=== PATIENT | male | born 1990 | race American Indian/Alaskan Native ===

== ENCOUNTER 2017-05-14 16:40 | Emergency (ER) | payer MEDICAID ==
[~2017-05-14] VITALS: Ht 188320.1 cm; Wt 80.9 kg
[~2017-05-14 16:40] MED LIST: QUET-1 PO; VAL5T PO
[2017-05-14] MEDS ORDERED: quetiapine 100mg tablet PO STA (17:20)
[2017-05-14] MEDS ORDERED: LORazepam 1 MG tablet PO ONE (17:20)
[2017-05-14 17:40] LABS: CLARITY,URINE CLEAR (Clear); COLOR,URINE YELLOW (Yellow); GLUCOSE, URINE NEGATIVE (Neg); KETONES,URINE NEGATIVE (Neg); LEUKOCYTE ESTERASE ,URINE NEGATIVE (Neg); NITRITES, URINE NEGATIVE (Neg); OCCULT BLOOD,URINE NEGATIVE (Neg); PROTEIN,URINE NEGATIVE (Neg); UROBILINOGEN,URINE 0.2 E.U/dL (0.2-1.0)
[2017-05-14 17:47] LABS: URINE AMPHETAMINE SCREEN POSITIVE (Neg); URINE BARBITUATE SCREEN NEGATIVE (Neg); URINE BENZODIAZEPINES SCREEN POSITIVE (Neg); URINE CANNABINOID SCREEN NEGATIVE (Neg); URINE COCAINE SCREEN NEGATIVE (Neg); URINE METHADONE SCREEN NEGATIVE (Neg); URINE OPIATE SCREEN NEGATIVE (Neg); URINE PHENCYCLIDINE SCREEN NEGATIVE (Neg)
[2017-05-14 17:50] LABS: UA COLLECTION TYPE CLN CATCH MIDSTREAM
[2017-05-14 19:38] LABS: BASOPHILS # (AUTO) 0.1 X10'3 (0-0.2); BASOPHILS % (AUTO) 0.7 % (0-1); EOSINOPHILS # (AUTO) 0.2 X10'3 (0-0.9); EOSINOPHILS % (AUTO) 1.8 % (0-6); HEMATOCRIT 44.8 % (42.0-52.0); HEMOGLOBIN 14.8 g/dl (14.0-17.9); LYMPHOCYTES # (AUTO) 2.6 X10'3 (1.1-4.8); LYMPHOCYTES % (AUTO) 21.6 % (21-51); MEAN CORPUSCULAR HEMOGLOBIN 29.1 PG (27.0-31.0); MEAN PLATELET VOLUME 11.3 FL (7.4-10.4); MONOCYTES # (AUTO) 0.7 X10'3 (0-0.9); MONOCYTES % (AUTO) 5.9 % (2-12); NEUTROPHILS # (AUTO) 8.5 X10'3 (1.8-7.7); PLATELET COUNT 203 X10'3 (140-440); WHITE BLOOD COUNT 12.2 X10'3 (4.5-11.0)
[2017-05-14 20:04] LABS: ALANINE AMINOTRANSFERASE 38 U/L (12-78); ALBUMIN 3.7 G/DL (3.4-5.0); ALKALINE PHOSPHATASE 83 IU/L (46-116); ANION GAP 8 (8-16); ASPARTATE AMINO TRANSFERASE 30 U/L (10-37); BILIRUBIN,TOTAL 0.6 MG/DL (0.1-1.0); BLOOD UREA NITROGEN 13 MG/DL (7-18); BUN/CREATININE RATIO 18.1 (5.4-32.0); CALCIUM 9.2 MG/DL (8.5-10.1); CHLORIDE 103 MMOL/L (99-107); CREATININE 0.72 MG/DL (0.60-1.10); GLUCOSE 100 MG/DL (70-104); POTASSIUM 4.2 MMOL/L (3.5-5.1); SODIUM 141 MMOL/L (135-145); TOTAL PROTEIN 7.5 G/DL (6.4-8.2); eGFR > 90 ML/MIN
[2017-05-14 20:05] LABS: ETHANOL < 0.010 GM/DL (0.0-0.010)
[2017-05-14] MEDS ORDERED: DIAZ5TAB4 PO (22:09)
[2017-05-14] MEDS ORDERED: QUET200T PO (22:09)
[2017-05-15] MEDS ORDERED: LORazepam 1 MG tablet PO ONE (07:05)
[2017-05-15] MEDS ORDERED: acetaminophen 325mg tablet PO PRN (07:15)
[2017-05-15] MEDS ORDERED: quetiapine 100mg tablet PO SCH (08:00)
[2017-05-15 11:23] VITALS: BP 114/63
== END 2017-05-15 11:25 | disposition home or self-care (01) ==
LOC: ER 16:41
DX: F20.9 Schizophrenia, unspecified (principal); F31.9 Bipolar disorder, unspecified; R45.851 Suicidal ideations; Z59.0 Homelessness; F41.9 Anxiety disorder, unspecified; F15.10 Other stimulant abuse, uncomplicated; Z88.5 Allergy status to narcotic agent
CPT/HCPCS: 36415; 80053; 80305; 80320; 81003; 84443; 85025; 99284

== ENCOUNTER 2017-05-17 06:28 | Emergency (ER) | payer MEDICAID ==
[~2017-05-17] VITALS: Ht 5535.5 cm; Wt 81.1 kg
[~2017-05-17 06:28] MED LIST changes: +DIAZ5TAB4 PO; +QUET200T PO
[2017-05-17] MEDS ORDERED: PENI500T2 PO (06:43)
[2017-05-17 07:18] VITALS: BP 137/66
== END 2017-05-17 07:20 | disposition home or self-care (01) ==
LOC: ER 06:28
DX: S09.90XA Unspecified injury of head, initial encounter (principal); F15.10 Other stimulant abuse, uncomplicated; K02.9 Dental caries, unspecified; F20.9 Schizophrenia, unspecified; Z59.0 Homelessness; F41.9 Anxiety disorder, unspecified; F32.9 Major depressive disorder, single episode, unspecified; Z88.5 Allergy status to narcotic agent; W01.0XXA Fall on same level from slipping, tripping and stumbling without subsequent striking against object, initial encounter; Y93.89 Activity, other specified; Y92.89 Other specified places as the place of occurrence of the external cause; Y99.8 Other external cause status
CPT/HCPCS: 99284

== ENCOUNTER 2017-05-22 22:40 | Emergency (ER) | payer MEDICAID ==
[~2017-05-22] VITALS: Ht 167.6 cm; Wt 80.9 kg
[~2017-05-22 22:40] MED LIST changes: +PENI500T2 PO; -QUET-1 PO; -VAL5T PO
[2017-05-22 23:14] LABS: BASOPHILS # (AUTO) 0.1 X10'3 (0-0.2); BASOPHILS % (AUTO) 0.3 % (0-1); EOSINOPHILS # (AUTO) 0.2 X10'3 (0-0.9); EOSINOPHILS % (AUTO) 0.9 % (0-6); HEMATOCRIT 47.2 % (42.0-52.0); HEMOGLOBIN 15.5 g/dl (14.0-17.9); LYMPHOCYTES # (AUTO) 2.6 X10'3 (1.1-4.8); LYMPHOCYTES % (AUTO) 14.7 % (21-51); MEAN CORPUSCULAR HEMOGLOBIN 29.1 PG (27.0-31.0); MEAN CORPUSCULAR HGB CONC 32.9 % (33.0-36.5); MEAN CORPUSCULAR VOLUME 88.3 FL (78-98); MEAN PLATELET VOLUME 10.1 FL (7.4-10.4); MONOCYTES # (AUTO) 1.1 X10'3 (0-0.9); MONOCYTES % (AUTO) 6.2 % (2-12); NEUTROPHILS % (AUTO) 77.9 % (42-75); PLATELET COUNT 209 X10'3 (140-440); RED BLOOD COUNT 5.34 X10'6 (4.70-6.10); WHITE BLOOD COUNT 17.9 X10'3 (4.5-11.0)
[2017-05-22 23:24] LABS: URINE AMPHETAMINE SCREEN POSITIVE (Neg); URINE BARBITUATE SCREEN NEGATIVE (Neg); URINE BENZODIAZEPINES SCREEN NEGATIVE (Neg); URINE CANNABINOID SCREEN POSITIVE (Neg); URINE COCAINE SCREEN NEGATIVE (Neg); URINE METHADONE SCREEN NEGATIVE (Neg); URINE OPIATE SCREEN NEGATIVE (Neg); URINE PHENCYCLIDINE SCREEN NEGATIVE (Neg)
[2017-05-22 23:31] LABS: ALANINE AMINOTRANSFERASE 55 U/L (12-78); ALBUMIN 4.3 G/DL (3.4-5.0); ALBUMIN/GLOBULIN RATIO 1.1 (1.1-1.5); ALKALINE PHOSPHATASE 79 IU/L (46-116); ANION GAP 4 (8-16); ASPARTATE AMINO TRANSFERASE 103 U/L (10-37); BILIRUBIN,TOTAL 1.1 MG/DL (0.1-1.0); BLOOD UREA NITROGEN 15 MG/DL (7-18); BUN/CREATININE RATIO 17.6 (5.4-32.0); CALCIUM 9.1 MG/DL (8.5-10.1); CHLORIDE 101 MMOL/L (99-107); CREATININE 0.85 MG/DL (0.60-1.10); GLUCOSE 101 MG/DL (70-104); POTASSIUM 4.2 MMOL/L (3.5-5.1); SODIUM 140 MMOL/L (135-145); TOTAL PROTEIN 8.3 G/DL (6.4-8.2); eGFR > 90 ML/MIN
[2017-05-22 23:40] LABS: ETHANOL < 0.010 GM/DL (0.0-0.010)
[2017-05-23] MEDS ORDERED: LORazepam 1 MG tablet PO ONE (01:00)
[2017-05-23 08:10] VITALS: BP 112/66
== END 2017-05-23 08:12 | disposition home or self-care (01) ==
LOC: ER 22:41
DX: R45.851 Suicidal ideations (principal); F20.9 Schizophrenia, unspecified; F41.9 Anxiety disorder, unspecified; F32.9 Major depressive disorder, single episode, unspecified; F15.10 Other stimulant abuse, uncomplicated; Z59.0 Homelessness; Z88.5 Allergy status to narcotic agent
CPT/HCPCS: 36415; 80053; 80305; 80320; 84443; 85025; 99284

== ENCOUNTER 2017-05-23 16:00 | Emergency (ER) | payer MEDICAID ==
[~2017-05-23] VITALS: Ht 5451.6 cm; Wt 150.0 kg
[2017-05-23 16:46] LABS: BASOPHILS # (AUTO) 0.1 X10'3 (0-0.2); BASOPHILS % (AUTO) 0.8 % (0-1); EOSINOPHILS # (AUTO) 0.3 X10'3 (0-0.9); EOSINOPHILS % (AUTO) 2.5 % (0-6); HEMATOCRIT 42.5 % (42.0-52.0); LYMPHOCYTES # (AUTO) 2.7 X10'3 (1.1-4.8); LYMPHOCYTES % (AUTO) 22.8 % (21-51); MEAN CORPUSCULAR HEMOGLOBIN 29.1 PG (27.0-31.0); MEAN CORPUSCULAR HGB CONC 32.9 % (33.0-36.5); MEAN CORPUSCULAR VOLUME 88.3 FL (78-98); MEAN PLATELET VOLUME 11.2 FL (7.4-10.4); MONOCYTES # (AUTO) 0.7 X10'3 (0-0.9); MONOCYTES % (AUTO) 6.3 % (2-12); NEUTROPHILS # (AUTO) 8.1 X10'3 (1.8-7.7); NEUTROPHILS % (AUTO) 67.6 % (42-75); PLATELET COUNT 194 X10'3 (140-440); RED BLOOD COUNT 4.82 X10'6 (4.70-6.10); RED CELL DISTRIBUTION WIDTH 13.8 % (11.5-14.5); WHITE BLOOD COUNT 11.9 X10'3 (4.5-11.0)
[2017-05-23 17:00] LABS: GIANT PLATELET FEW; LARGE PLATELETS FEW; PLATELET ESTIMATE NORMAL
[2017-05-23 17:06] LABS: ALANINE AMINOTRANSFERASE 50 U/L (12-78); ALBUMIN 3.7 G/DL (3.4-5.0); ALKALINE PHOSPHATASE 81 IU/L (46-116); ANION GAP 8 (8-16); ASPARTATE AMINO TRANSFERASE 68 U/L (10-37); BILIRUBIN,TOTAL 0.5 MG/DL (0.1-1.0); BLOOD UREA NITROGEN 19 MG/DL (7-18); BUN/CREATININE RATIO 23.5 (5.4-32.0); CALCIUM 9.2 MG/DL (8.5-10.1); CHLORIDE 102 MMOL/L (99-107); CREATININE 0.81 MG/DL (0.60-1.10); GLUCOSE 106 MG/DL (70-104); SODIUM 142 MMOL/L (135-145); TOTAL CARBON DIOXIDE 32.1 MMOL/L (24-32); TOTAL PROTEIN 7.5 G/DL (6.4-8.2); eGFR > 90 ML/MIN
[2017-05-23 17:10] LABS: ETHANOL < 0.010 GM/DL (0.0-0.010)
[2017-05-23 17:49] LABS: URINE AMPHETAMINE SCREEN POSITIVE (Neg); URINE BARBITUATE SCREEN NEGATIVE (Neg); URINE BENZODIAZEPINES SCREEN NEGATIVE (Neg); URINE CANNABINOID SCREEN NEGATIVE (Neg); URINE COCAINE SCREEN NEGATIVE (Neg); URINE METHADONE SCREEN NEGATIVE (Neg); URINE OPIATE SCREEN NEGATIVE (Neg); URINE PHENCYCLIDINE SCREEN NEGATIVE (Neg)
[2017-05-23 21:51] VITALS: BP 111/52
== END 2017-05-23 22:00 | disposition home or self-care (01) ==
LOC: ER 16:01
DX: R45.851 Suicidal ideations (principal); F15.10 Other stimulant abuse, uncomplicated; F41.9 Anxiety disorder, unspecified; F32.9 Major depressive disorder, single episode, unspecified; F20.9 Schizophrenia, unspecified; Z87.891 Personal history of nicotine dependence; Z59.0 Homelessness; Z88.5 Allergy status to narcotic agent; Z56.0 Unemployment, unspecified
CPT/HCPCS: 36415; 80053; 80305; 80320; 85025; 99284

== ENCOUNTER 2017-06-04 15:02 | Emergency (ER) | payer MEDICAID ==
[~2017-06-04] VITALS: Ht 170.2 cm; Wt 80.0 kg
[2017-06-04] MEDS ORDERED: ondansetron 4mg rapidly disintigrating tab PO ONE (15:15)
[2017-06-04 15:50] LABS: BASOPHILS # (AUTO) 0.1 X10'3 (0-0.2); BASOPHILS % (AUTO) 0.7 % (0-1); EOSINOPHILS # (AUTO) 0.2 X10'3 (0-0.9); EOSINOPHILS % (AUTO) 1.4 % (0-6); HEMATOCRIT 45.1 % (42.0-52.0); HEMOGLOBIN 14.9 g/dl (14.0-17.9); LYMPHOCYTES # (AUTO) 1.6 X10'3 (1.1-4.8); MEAN CORPUSCULAR HEMOGLOBIN 29.3 PG (27.0-31.0); MEAN CORPUSCULAR HGB CONC 33.1 % (33.0-36.5); MEAN CORPUSCULAR VOLUME 88.6 FL (78-98); MEAN PLATELET VOLUME 11.4 FL (7.4-10.4); MONOCYTES # (AUTO) 0.6 X10'3 (0-0.9); MONOCYTES % (AUTO) 3.8 % (2-12); NEUTROPHILS % (AUTO) 83.1 % (42-75); PLATELET COUNT 175 X10'3 (140-440); RED BLOOD COUNT 5.09 X10'6 (4.70-6.10); RED CELL DISTRIBUTION WIDTH 13.5 % (11.5-14.5); WHITE BLOOD COUNT 14.4 X10'3 (4.5-11.0)
[2017-06-04 16:04] LABS: ALANINE AMINOTRANSFERASE 32 U/L (12-78); ALBUMIN 3.9 G/DL (3.4-5.0); ALKALINE PHOSPHATASE 83 IU/L (46-116); ANION GAP 4 (8-16); ASPARTATE AMINO TRANSFERASE 24 U/L (10-37); BILIRUBIN,TOTAL 0.6 MG/DL (0.1-1.0); BLOOD UREA NITROGEN 15 MG/DL (7-18); BUN/CREATININE RATIO 16.7 (5.4-32.0); CALCIUM 8.7 MG/DL (8.5-10.1); CHLORIDE 103 MMOL/L (99-107); ETHANOL < 0.010 GM/DL (0.0-0.010); GLUCOSE 108 MG/DL (70-104); POTASSIUM 3.9 MMOL/L (3.5-5.1); SODIUM 139 MMOL/L (135-145); TOTAL CARBON DIOXIDE 31.8 MMOL/L (24-32); TOTAL PROTEIN 7.7 G/DL (6.4-8.2); eGFR > 90 ML/MIN
[2017-06-04] MEDS ORDERED: ONDA4TAB9 PO (16:34)
[2017-06-04 16:48] VITALS: BP 134/66
== END 2017-06-04 16:52 | disposition home or self-care (01) ==
LOC: ER 15:03
DX: S06.0X0A Concussion without loss of consciousness, initial encounter (principal); S00.03XA Contusion of scalp, initial encounter; R11.2 Nausea with vomiting, unspecified; F41.9 Anxiety disorder, unspecified; F20.9 Schizophrenia, unspecified; F32.9 Major depressive disorder, single episode, unspecified; Z59.0 Homelessness; Z88.5 Allergy status to narcotic agent; X58.XXXA Exposure to other specified factors, initial encounter; Y93.89 Activity, other specified; Y92.89 Other specified places as the place of occurrence of the external cause; Y99.8 Other external cause status
CPT/HCPCS: 36415; 80053; 80320; 85025; 99284

== ENCOUNTER 2017-06-09 16:25 | Emergency (ER) | payer MEDICAID ==
[~2017-06-09] VITALS: Ht 170.2 cm; Wt 80.9 kg
[~2017-06-09 16:25] MED LIST changes: +ONDA4TAB9 PO
[2017-06-09 17:12] LABS: BASOPHILS % (AUTO) 0.3 % (0-1); EOSINOPHILS # (AUTO) 0.3 X10'3 (0-0.9); EOSINOPHILS % (AUTO) 2.8 % (0-6); HEMATOCRIT 46.8 % (42.0-52.0); HEMOGLOBIN 15.4 g/dl (14.0-17.9); LYMPHOCYTES # (AUTO) 1.8 X10'3 (1.1-4.8); LYMPHOCYTES % (AUTO) 16.7 % (21-51); MEAN CORPUSCULAR HEMOGLOBIN 29.1 PG (27.0-31.0); MEAN CORPUSCULAR HGB CONC 32.9 % (33.0-36.5); MEAN CORPUSCULAR VOLUME 88.4 FL (78-98); MEAN PLATELET VOLUME 11.5 FL (7.4-10.4); MONOCYTES # (AUTO) 0.4 X10'3 (0-0.9); MONOCYTES % (AUTO) 3.9 % (2-12); NEUTROPHILS # (AUTO) 8.5 X10'3 (1.8-7.7); NEUTROPHILS % (AUTO) 76.3 % (42-75); PLATELET COUNT 164 X10'3 (140-440); RED BLOOD COUNT 5.29 X10'6 (4.70-6.10); RED CELL DISTRIBUTION WIDTH 13.7 % (11.5-14.5); WHITE BLOOD COUNT 11.1 X10'3 (4.5-11.0)
[2017-06-09 17:30] LABS: PLATELET ESTIMATE NORMAL
[2017-06-09 17:31] LABS: LARGE PLATELETS MODERATE
[2017-06-09 17:40] LABS: ALANINE AMINOTRANSFERASE 32 U/L (12-78); ALBUMIN 3.5 G/DL (3.4-5.0); ALBUMIN/GLOBULIN RATIO 0.9 (1.1-1.5); ALKALINE PHOSPHATASE 72 IU/L (46-116); ANION GAP 7 (8-16); ASPARTATE AMINO TRANSFERASE 17 U/L (10-37); BILIRUBIN,TOTAL 0.4 MG/DL (0.1-1.0); BLOOD UREA NITROGEN 16 MG/DL (7-18); BUN/CREATININE RATIO 22.9 (5.4-32.0); CALCIUM 8.9 MG/DL (8.5-10.1); CHLORIDE 105 MMOL/L (99-107); ETHANOL < 0.010 GM/DL (0.0-0.010); GLUCOSE 143 MG/DL (70-104); POTASSIUM 3.8 MMOL/L (3.5-5.1); SODIUM 142 MMOL/L (135-145); TOTAL CARBON DIOXIDE 30.4 MMOL/L (24-32); TOTAL PROTEIN 7.2 G/DL (6.4-8.2); eGFR > 90 ML/MIN
[2017-06-09 17:54] LABS: CLARITY,URINE Clear (Clear); COLOR,URINE Yellow (Yellow); GLUCOSE, URINE Negative (Neg); KETONES,URINE Negative (Neg); LEUKOCYTE ESTERASE ,URINE Negative (Neg); NITRITES, URINE Negative (Neg); OCCULT BLOOD,URINE Negative (Neg); PH,URINE 5.5 (4.8-8.0); PROTEIN,URINE Negative (Neg)
[2017-06-09 17:55] LABS: UA COLLECTION TYPE VOIDED
[2017-06-09 18:08] LABS: URINE AMPHETAMINE SCREEN POSITIVE (Neg); URINE BARBITUATE SCREEN NEGATIVE (Neg); URINE BENZODIAZEPINES SCREEN NEGATIVE (Neg); URINE CANNABINOID SCREEN NEGATIVE (Neg); URINE COCAINE SCREEN NEGATIVE (Neg); URINE METHADONE SCREEN NEGATIVE (Neg); URINE OPIATE SCREEN NEGATIVE (Neg); URINE PHENCYCLIDINE SCREEN NEGATIVE (Neg)
[2017-06-09] MEDS ORDERED: QUEtiapine 25mg tablet PO ONE (22:25)
[2017-06-10] MEDS: LORazepam 1 MG tablet PO PRN ×2 (16:49→21:56)
[2017-06-10] MEDS ORDERED: QUEtiapine 25mg tablet PO SCH (21:00)
[2017-06-11 05:45] VITALS: BP 112/72
== END 2017-06-11 10:18 ==
LOC: ER 16:26
DX: F31.9 Bipolar disorder, unspecified (principal); F15.10 Other stimulant abuse, uncomplicated; F41.9 Anxiety disorder, unspecified; F20.9 Schizophrenia, unspecified; Z88.6 Allergy status to analgesic agent
CPT/HCPCS: 36415; 80053; 80305; 80320; 81003; 84443; 85025; 99285; J7030

== ENCOUNTER 2017-07-03 09:10 | Emergency (ER) | payer MEDICAID ==
[~2017-07-03] VITALS: Ht 170.2 cm; Wt 85.1 kg
[2017-07-03 11:20] LABS: CLARITY,URINE CLEAR (Clear); COLOR,URINE YELLOW (Yellow); GLUCOSE, URINE NEGATIVE (Neg); KETONES,URINE NEGATIVE (Neg); LEUKOCYTE ESTERASE ,URINE NEGATIVE (Neg); NITRITES, URINE NEGATIVE (Neg); OCCULT BLOOD,URINE NEGATIVE (Neg); PROTEIN,URINE NEGATIVE (Neg); UROBILINOGEN,URINE 0.2 E.U/dL (0.2-1.0)
[2017-07-03 11:22] LABS: URINE AMPHETAMINE SCREEN POSITIVE (Neg); URINE BARBITUATE SCREEN NEGATIVE (Neg); URINE BENZODIAZEPINES SCREEN NEGATIVE (Neg); URINE CANNABINOID SCREEN NEGATIVE (Neg); URINE COCAINE SCREEN NEGATIVE (Neg); URINE METHADONE SCREEN NEGATIVE (Neg); URINE OPIATE SCREEN NEGATIVE (Neg); URINE PHENCYCLIDINE SCREEN NEGATIVE (Neg)
[2017-07-03 11:25] LABS: UA COLLECTION TYPE VOIDED
[2017-07-03 11:41] LABS: BASOPHILS % (AUTO) 0.3 % (0-1); EOSINOPHILS # (AUTO) 0.3 X10'3 (0-0.9); EOSINOPHILS % (AUTO) 1.8 % (0-6); HEMATOCRIT 43.5 % (42.0-52.0); LYMPHOCYTES # (AUTO) 1.4 X10'3 (1.1-4.8); LYMPHOCYTES % (AUTO) 9.4 % (21-51); MEAN CORPUSCULAR HEMOGLOBIN 29.2 PG (27.0-31.0); MEAN CORPUSCULAR HGB CONC 34.4 % (33.0-36.5); MEAN CORPUSCULAR VOLUME 84.9 FL (78-98); MEAN PLATELET VOLUME 10.5 FL (7.4-10.4); MONOCYTES % (AUTO) 6.7 % (2-12); NEUTROPHILS % (AUTO) 81.8 % (42-75); PLATELET COUNT 264 X10'3 (140-440); RED BLOOD COUNT 5.12 X10'6 (4.70-6.10); RED CELL DISTRIBUTION WIDTH 13.6 % (11.5-14.5); WHITE BLOOD COUNT 14.6 X10'3 (4.5-11.0)
[2017-07-03 12:01] LABS: ALANINE AMINOTRANSFERASE 28 U/L (12-78); ALBUMIN 3.5 G/DL (3.4-5.0); ALBUMIN/GLOBULIN RATIO 0.7 (1.1-1.5); ALKALINE PHOSPHATASE 80 IU/L (46-116); ANION GAP 8 (8-16); ASPARTATE AMINO TRANSFERASE 22 U/L (10-37); BILIRUBIN,TOTAL 0.5 MG/DL (0.1-1.0); BLOOD UREA NITROGEN 16 MG/DL (7-18); BUN/CREATININE RATIO 20.3 (5.4-32.0); CALCIUM 9.5 MG/DL (8.5-10.1); CHLORIDE 103 MMOL/L (99-107); CREATININE 0.79 MG/DL (0.60-1.10); ETHANOL < 0.010 GM/DL (0.0-0.010); GLUCOSE 88 MG/DL (70-104); POTASSIUM 3.9 MMOL/L (3.5-5.1); SODIUM 143 MMOL/L (135-145); TOTAL CARBON DIOXIDE 31.8 MMOL/L (24-32); TOTAL PROTEIN 8.4 G/DL (6.4-8.2); eGFR > 90 ML/MIN
[2017-07-03 16:25] VITALS: BP 131/74
== END 2017-07-03 16:33 | disposition home or self-care (01) ==
LOC: ER 09:11
DX: R45.851 Suicidal ideations (principal); F32.9 Major depressive disorder, single episode, unspecified; F20.9 Schizophrenia, unspecified; F41.9 Anxiety disorder, unspecified; F15.90 Other stimulant use, unspecified, uncomplicated; Z60.2 Problems related to living alone; Z59.0 Homelessness; Z56.0 Unemployment, unspecified
CPT/HCPCS: 36415; 72050; 72125; 80053; 80305; 80320; 81003; 84443; 85025; 99285; L0172

== ENCOUNTER 2017-07-13 06:29 | Emergency (ER) | payer MEDICAID ==
[~2017-07-13] VITALS: Ht 170.2 cm; Wt 85.0 kg
[2017-07-13 07:43] VITALS: BP 152/86
== END 2017-07-13 07:46 | disposition home or self-care (01) ==
LOC: ER 06:29
DX: F15.10 Other stimulant abuse, uncomplicated (principal); F41.9 Anxiety disorder, unspecified; F32.9 Major depressive disorder, single episode, unspecified; F20.9 Schizophrenia, unspecified; Z56.0 Unemployment, unspecified; Z59.0 Homelessness; Z60.2 Problems related to living alone
CPT/HCPCS: 99281

== ENCOUNTER 2017-07-25 19:33 | Emergency (ER) | payer MEDICAID ==
[~2017-07-25] VITALS: Ht 167.6 cm; Wt 74.5 kg
[2017-07-25 19:35] VITALS: BP 141/100
== END 2017-07-25 21:39 | disposition home or self-care (01) ==
LOC: ER 19:34
DX: F29 Unspecified psychosis not due to a substance or known physiological condition (principal); F15.10 Other stimulant abuse, uncomplicated; F41.9 Anxiety disorder, unspecified; F32.9 Major depressive disorder, single episode, unspecified; F20.9 Schizophrenia, unspecified; Z59.0 Homelessness; Z60.2 Problems related to living alone; Z56.0 Unemployment, unspecified
CPT/HCPCS: 99284

== ENCOUNTER 2017-10-09 17:50 | Emergency (ER) | payer MEDICAID ==
[~2017-10-09] VITALS: Ht 170.2 cm; Wt 90.0 kg
[2017-10-09 20:31] VITALS: BP 134/83
== END 2017-10-09 20:38 | disposition home or self-care (01) ==
LOC: ER 17:51
DX: R45.851 Suicidal ideations (principal); F19.10 Other psychoactive substance abuse, uncomplicated; F15.10 Other stimulant abuse, uncomplicated; F41.9 Anxiety disorder, unspecified; F32.9 Major depressive disorder, single episode, unspecified; F20.9 Schizophrenia, unspecified; Z56.0 Unemployment, unspecified; Z59.0 Homelessness; Z60.2 Problems related to living alone
CPT/HCPCS: 99284

== ENCOUNTER 2018-02-04 04:45 | Emergency (ER) | payer OTHER ==
[~2018-02-04] VITALS: Ht 165.1 cm; Wt 88.2 kg
[~2018-02-04 04:45] MED LIST changes: -DIAZ5TAB4 PO; +DOXY100C43 PO; -ONDA4TAB9 PO; -PENI500T2 PO; -QUET200T PO
[2018-02-04] MEDS ORDERED: NO HOME MEDS (05:16)
[2018-02-04 05:32] LABS: BASOPHILS # (AUTO) 0.2 X10'3 (0-0.2); EOSINOPHILS # (AUTO) 0.1 X10'3 (0-0.9); HEMATOCRIT 48.9 % (42.0-52.0); HEMOGLOBIN 16.2 g/dl (14.0-17.9); LYMPHOCYTES # (AUTO) 2.1 X10'3 (1.1-4.8); LYMPHOCYTES % (AUTO) 22.4 % (21-51); MEAN CORPUSCULAR HEMOGLOBIN 28.6 PG (27.0-31.0); MEAN CORPUSCULAR HGB CONC 33.1 % (33.0-36.5); MEAN CORPUSCULAR VOLUME 86.3 FL (78-98); MEAN PLATELET VOLUME 12.7 FL (7.4-10.4); MONOCYTES # (AUTO) 0.6 X10'3 (0-0.9); MONOCYTES % (AUTO) 6.3 % (2-12); NEUTROPHILS # (AUTO) 6.5 X10'3 (1.8-7.7); NEUTROPHILS % (AUTO) 68.3 % (42-75); PLATELET COUNT 186 X10'3 (140-440); RED BLOOD COUNT 5.67 X10'6 (4.70-6.10); RED CELL DISTRIBUTION WIDTH 14.4 % (11.5-14.5); WHITE BLOOD COUNT 9.5 X10'3 (4.5-11.0)
[2018-02-04 05:44] LABS: LARGE PLATELETS FEW; PLATELET ESTIMATE NORMAL
[2018-02-04 05:45] LABS: ALANINE AMINOTRANSFERASE 50 U/L (12-78); ALBUMIN 4.4 G/DL (3.4-5.0); ALBUMIN/GLOBULIN RATIO 1.1 (1.1-1.5); ALKALINE PHOSPHATASE 78 IU/L (46-116); ANION GAP 9 (8-16); ASPARTATE AMINO TRANSFERASE 51 U/L (10-37); BILIRUBIN,TOTAL 1.6 MG/DL (0.1-1.0); BLOOD UREA NITROGEN 19 MG/DL (7-18); BUN/CREATININE RATIO 21.8 (5.4-32.0); CALCIUM 9.4 MG/DL (8.5-10.1); CHLORIDE 100 MMOL/L (99-107); CREATININE 0.87 MG/DL (0.60-1.10); GLUCOSE 96 MG/DL (70-104); POTASSIUM 4.4 MMOL/L (3.5-5.1); SODIUM 140 MMOL/L (135-145); TOTAL CARBON DIOXIDE 30.9 MMOL/L (24-32); TOTAL PROTEIN 8.5 G/DL (6.4-8.2); eGFR > 90 ML/MIN
[2018-02-04 05:54] LABS: ACETAMINOPHEN < 2.0 UG/ML (10-30); ETHANOL < 0.010 GM/DL (0.0-0.010); URINE AMPHETAMINE SCREEN POSITIVE (Neg); URINE BARBITUATE SCREEN NEGATIVE (Neg); URINE BENZODIAZEPINES SCREEN NEGATIVE (Neg); URINE CANNABINOID SCREEN NEGATIVE (Neg); URINE COCAINE SCREEN NEGATIVE (Neg); URINE METHADONE SCREEN NEGATIVE (Neg); URINE OPIATE SCREEN NEGATIVE (Neg); URINE PHENCYCLIDINE SCREEN NEGATIVE (Neg)
[2018-02-04] MEDS ORDERED: QUEtiapine 25mg tablet PO PRN (06:35)
[2018-02-04 07:27] VITALS: BP 135/89
== END 2018-02-04 09:09 | disposition home or self-care (01) ==
LOC: ER 04:47
DX: R45.851 Suicidal ideations (principal); F15.10 Other stimulant abuse, uncomplicated; F41.9 Anxiety disorder, unspecified; F32.9 Major depressive disorder, single episode, unspecified; F20.9 Schizophrenia, unspecified; Z59.0 Homelessness; Z56.0 Unemployment, unspecified
CPT/HCPCS: 36415; 80053; 80305; 80320; 80329; 84443; 85025; 99284

== ENCOUNTER 2018-04-20 05:35 | Emergency (ER) | payer MEDICAID ==
[~2018-04-20] VITALS: Ht 170.2 cm; Wt 64.3 kg
[~2018-04-20 05:35] MED LIST changes: -DOXY100C43 PO; +NO HOME MEDS
[2018-04-20 05:38] VITALS: BP 127/78
[2018-04-20] MEDS ORDERED: ondansetron/PF 4mg/2ml inj IV ONE (06:35)
[2018-04-20] MEDS ORDERED: normal saline 1000ML IV soln IVB ONE (06:35)
[2018-04-20] MEDS ORDERED: morphine 4 MG/ML inj SYRINge IV PRN (06:35)
[2018-04-20 07:28] LABS: BASOPHILS # (AUTO) 0.1 X10'3 (0-0.2); EOSINOPHILS # (AUTO) 0.1 X10'3 (0-0.9); EOSINOPHILS % (AUTO) 0.9 % (0-6); HEMATOCRIT 43.9 % (42.0-52.0); HEMOGLOBIN 14.4 g/dl (14.0-17.9); LYMPHOCYTES # (AUTO) 1.9 X10'3 (1.1-4.8); LYMPHOCYTES % (AUTO) 15.2 % (21-51); MEAN CORPUSCULAR HGB CONC 32.7 % (33.0-36.5); MEAN CORPUSCULAR VOLUME 85.6 FL (78-98); MEAN PLATELET VOLUME 11.9 FL (7.4-10.4); MONOCYTES # (AUTO) 0.9 X10'3 (0-0.9); MONOCYTES % (AUTO) 7.1 % (2-12); NEUTROPHILS # (AUTO) 9.5 X10'3 (1.8-7.7); NEUTROPHILS % (AUTO) 75.8 % (42-75); PLATELET COUNT 195 X10'3 (140-440); RED BLOOD COUNT 5.14 X10'6 (4.70-6.10); RED CELL DISTRIBUTION WIDTH 14.5 % (11.5-14.5); WHITE BLOOD COUNT 12.5 X10'3 (4.5-11.0)
[2018-04-20 07:37] LABS: LARGE PLATELETS FEW; PLATELET ESTIMATE NORMAL
[2018-04-20 07:39] LABS: ALANINE AMINOTRANSFERASE 37 U/L (12-78); ALBUMIN 3.8 G/DL (3.4-5.0); ALBUMIN/GLOBULIN RATIO 1.1 (1.1-1.5); ALKALINE PHOSPHATASE 66 IU/L (46-116); ANION GAP 10 (8-16); BILIRUBIN,TOTAL 1.9 MG/DL (0.1-1.0); BLOOD UREA NITROGEN 12 MG/DL (7-18); BUN/CREATININE RATIO 17.1 (5.4-32.0); CALCIUM 8.8 MG/DL (8.5-10.1); CHLORIDE 98 MMOL/L (99-107); ETHANOL < 0.010 GM/DL (0.0-0.010); GLUCOSE 82 MG/DL (70-104); SODIUM 136 MMOL/L (135-145); TOTAL CARBON DIOXIDE 27.8 MMOL/L (24-32); TOTAL PROTEIN 7.4 G/DL (6.4-8.2); eGFR > 90 ML/MIN
[2018-04-20 07:40] LABS: ASPARTATE AMINO TRANSFERASE 38 U/L (10-37)
[2018-04-20 07:44] LABS: URINE AMPHETAMINE SCREEN POSITIVE (Neg); URINE BARBITUATE SCREEN NEGATIVE (Neg); URINE BENZODIAZEPINES SCREEN NEGATIVE (Neg); URINE CANNABINOID SCREEN NEGATIVE (Neg); URINE COCAINE SCREEN NEGATIVE (Neg); URINE METHADONE SCREEN NEGATIVE (Neg); URINE OPIATE SCREEN NEGATIVE (Neg); URINE PHENCYCLIDINE SCREEN NEGATIVE (Neg)
== END 2018-04-20 08:06 | disposition home or self-care (01) ==
LOC: ER 05:36
DX: F15.10 Other stimulant abuse, uncomplicated (principal); M25.512 Pain in left shoulder; R10.30 Lower abdominal pain, unspecified; F41.9 Anxiety disorder, unspecified; F32.9 Major depressive disorder, single episode, unspecified; F20.9 Schizophrenia, unspecified; Z59.0 Homelessness; Z56.0 Unemployment, unspecified
CPT/HCPCS: 36415; 80053; 80305; 80320; 85025; 96374; 96375; 99283; J2270; J2405; J7030

== ENCOUNTER 2018-04-23 00:07 | Emergency (ER) | payer MEDICAID ==
[~2018-04-23] VITALS: Ht 170.2 cm; Wt 85.0 kg
[2018-04-23] MEDS ORDERED: LORazepam 2 mg/ml vial IV ONE (00:30)
[2018-04-23] MEDS ORDERED: normal saline 1000ML IV soln IVB ONE (00:30)
[2018-04-23 00:53] LABS: BASOPHILS # (AUTO) 0.1 X10'3 (0-0.2); BASOPHILS % (AUTO) 0.6 % (0-1); EOSINOPHILS # (AUTO) 0.1 X10'3 (0-0.9); EOSINOPHILS % (AUTO) 1.4 % (0-6); HEMATOCRIT 44.1 % (42.0-52.0); HEMOGLOBIN 14.4 g/dl (14.0-17.9); LYMPHOCYTES # (AUTO) 2.5 X10'3 (1.1-4.8); LYMPHOCYTES % (AUTO) 23.1 % (21-51); MEAN CORPUSCULAR HEMOGLOBIN 28.4 PG (27.0-31.0); MEAN CORPUSCULAR HGB CONC 32.7 % (33.0-36.5); MEAN CORPUSCULAR VOLUME 86.6 FL (78-98); MEAN PLATELET VOLUME 12.1 FL (7.4-10.4); MONOCYTES # (AUTO) 0.6 X10'3 (0-0.9); MONOCYTES % (AUTO) 5.4 % (2-12); NEUTROPHILS # (AUTO) 7.4 X10'3 (1.8-7.7); NEUTROPHILS % (AUTO) 69.5 % (42-75); PLATELET COUNT 188 X10'3 (140-440); RED BLOOD COUNT 5.09 X10'6 (4.70-6.10); RED CELL DISTRIBUTION WIDTH 14.4 % (11.5-14.5); WHITE BLOOD COUNT 10.7 X10'3 (4.5-11.0)
[2018-04-23 01:07] LABS: ALANINE AMINOTRANSFERASE 32 U/L (12-78); ALBUMIN 4.1 G/DL (3.4-5.0); ALBUMIN/GLOBULIN RATIO 1.1 (1.1-1.5); ALKALINE PHOSPHATASE 80 IU/L (46-116); ANION GAP 8 (8-16); ASPARTATE AMINO TRANSFERASE 30 U/L (10-37); BILIRUBIN,TOTAL 1.7 MG/DL (0.1-1.0); BLOOD UREA NITROGEN 6 MG/DL (7-18); BUN/CREATININE RATIO 6.9 (5.4-32.0); CALCIUM 9.3 MG/DL (8.5-10.1); CHLORIDE 100 MMOL/L (99-107); CREATININE 0.87 MG/DL (0.60-1.10); ETHANOL < 0.010 GM/DL (0.0-0.010); GLUCOSE 88 MG/DL (70-104); POTASSIUM 3.5 MMOL/L (3.5-5.1); SODIUM 137 MMOL/L (135-145); TOTAL CARBON DIOXIDE 29.1 MMOL/L (24-32); TOTAL PROTEIN 7.8 G/DL (6.4-8.2); eGFR > 90 ML/MIN
[2018-04-23 01:56] VITALS: BP 126/73
== END 2018-04-23 02:47 | disposition home or self-care (01) ==
LOC: ER 00:08
DX: F15.10 Other stimulant abuse, uncomplicated (principal); F19.10 Other psychoactive substance abuse, uncomplicated; F41.9 Anxiety disorder, unspecified; F32.9 Major depressive disorder, single episode, unspecified; F20.9 Schizophrenia, unspecified; Z59.0 Homelessness; Z56.0 Unemployment, unspecified
CPT/HCPCS: 36415; 80053; 80320; 85025; 96374; 99283; J2060; J7030

== ENCOUNTER 2018-05-02 03:46 | Emergency (ER) | payer MEDICAID | END 2018-05-02 04:13 | disposition left against medical advice (07) | LOC: ER 03:46 | DX: R42 Dizziness and giddiness (principal); Z53.21 Procedure and treatment not carried out due to patient leaving prior to being seen by health care provider ==

== ENCOUNTER 2018-05-07 00:42 | Emergency (ER) | payer MEDICAID ==
[~2018-05-07] VITALS: Ht 172.7 cm; Wt 70.3 kg
[2018-05-07 02:22] LABS: ALANINE AMINOTRANSFERASE 31 U/L (12-78); ALBUMIN 4.2 G/DL (3.4-5.0); ALBUMIN/GLOBULIN RATIO 1.1 (1.1-1.5); ALKALINE PHOSPHATASE 79 IU/L (46-116); ANION GAP 9 (8-16); ASPARTATE AMINO TRANSFERASE 25 U/L (10-37); BLOOD UREA NITROGEN 9 MG/DL (7-18); BUN/CREATININE RATIO 10.8 (5.4-32.0); CALCIUM 9.1 MG/DL (8.5-10.1); CHLORIDE 101 MMOL/L (99-107); CREATININE 0.83 MG/DL (0.60-1.10); ETHANOL < 0.010 GM/DL (0.0-0.010); GLUCOSE 92 MG/DL (70-104); POTASSIUM 3.6 MMOL/L (3.5-5.1); SODIUM 138 MMOL/L (135-145); TOTAL CARBON DIOXIDE 28.4 MMOL/L (24-32); TOTAL PROTEIN 7.9 G/DL (6.4-8.2); eGFR > 90 ML/MIN
[2018-05-07 02:38] LABS: BASOPHILS # (AUTO) 0.1 X10'3 (0-0.2); BASOPHILS % (AUTO) 0.7 % (0-1); EOSINOPHILS # (AUTO) 0.3 X10'3 (0-0.9); EOSINOPHILS % (AUTO) 2.9 % (0-6); HEMATOCRIT 46.7 % (42.0-52.0); HEMOGLOBIN 15.5 g/dl (14.0-17.9); LYMPHOCYTES # (AUTO) 2.9 X10'3 (1.1-4.8); LYMPHOCYTES % (AUTO) 27.2 % (21-51); MEAN CORPUSCULAR HEMOGLOBIN 28.4 PG (27.0-31.0); MEAN CORPUSCULAR HGB CONC 33.1 % (33.0-36.5); MEAN CORPUSCULAR VOLUME 85.9 FL (78-98); MEAN PLATELET VOLUME 12.1 FL (7.4-10.4); MONOCYTES # (AUTO) 0.6 X10'3 (0-0.9); MONOCYTES % (AUTO) 5.6 % (2-12); NEUTROPHILS # (AUTO) 6.7 X10'3 (1.8-7.7); NEUTROPHILS % (AUTO) 63.6 % (42-75); PLATELET COUNT 216 X10'3 (140-440); RED BLOOD COUNT 5.44 X10'6 (4.70-6.10); RED CELL DISTRIBUTION WIDTH 14.4 % (11.5-14.5); WHITE BLOOD COUNT 10.5 X10'3 (4.5-11.0)
[2018-05-07 02:53] LABS: URINE AMPHETAMINE SCREEN POSITIVE (Neg); URINE BARBITUATE SCREEN NEGATIVE (Neg); URINE BENZODIAZEPINES SCREEN NEGATIVE (Neg); URINE CANNABINOID SCREEN NEGATIVE (Neg); URINE COCAINE SCREEN NEGATIVE (Neg); URINE METHADONE SCREEN NEGATIVE (Neg); URINE OPIATE SCREEN NEGATIVE (Neg); URINE PHENCYCLIDINE SCREEN NEGATIVE (Neg)
[2018-05-07 03:09] LABS: GIANT PLATELET FEW; LARGE PLATELETS MODERATE; PLATELET ESTIMATE NORMAL
[2018-05-07 03:42] VITALS: BP 118/82
== END 2018-05-07 03:46 | disposition home or self-care (01) ==
LOC: ER 00:43
DX: F32.9 Major depressive disorder, single episode, unspecified (principal); F19.10 Other psychoactive substance abuse, uncomplicated; F41.9 Anxiety disorder, unspecified; F20.9 Schizophrenia, unspecified; F15.90 Other stimulant use, unspecified, uncomplicated; F17.200 Nicotine dependence, unspecified, uncomplicated; Z59.0 Homelessness; Z56.0 Unemployment, unspecified
CPT/HCPCS: 36415; 80053; 80305; 80320; 85025; 99284

== ENCOUNTER 2018-05-17 02:32 | Emergency (ER) | payer MEDICAID ==
[~2018-05-17] VITALS: Ht 167.6 cm; Wt 81.3 kg
[2018-05-17 02:43] VITALS: BP 147/94
[2018-05-17] MEDS ORDERED: ibuprofen tablet 400 MG TABLET PO ONE (03:40)
== END 2018-05-17 04:00 | disposition home or self-care (01) ==
LOC: ER 02:33
DX: M25.512 Pain in left shoulder (principal); F15.90 Other stimulant use, unspecified, uncomplicated; Z56.0 Unemployment, unspecified; Z59.0 Homelessness; X50.1XXA Overexertion from prolonged static or awkward postures, initial encounter; Y93.89 Activity, other specified; Y92.89 Other specified places as the place of occurrence of the external cause; Y99.8 Other external cause status
CPT/HCPCS: 99282

== ENCOUNTER 2018-05-24 21:42 | Emergency (ER) | payer MEDICAID ==
[~2018-05-24] VITALS: Ht 167.6 cm; Wt 90.0 kg
--- NOTE | 2018-05-24 22:02 | NUR ---
PT requested 3 .50 cent coins to be locked up in ER safe. Reciept in pt chart in belongings section.
--- NOTE | 2018-05-24 22:20 | NUR ---
Telepsych consult initiated. Approx. wait time 2 hrs.
[2018-05-24 22:35] LABS: URINE AMPHETAMINE SCREEN POSITIVE (Neg); URINE BARBITUATE SCREEN NEGATIVE (Neg); URINE BENZODIAZEPINES SCREEN NEGATIVE (Neg); URINE CANNABINOID SCREEN NEGATIVE (Neg); URINE COCAINE SCREEN NEGATIVE (Neg); URINE METHADONE SCREEN NEGATIVE (Neg); URINE OPIATE SCREEN NEGATIVE (Neg); URINE PHENCYCLIDINE SCREEN NEGATIVE (Neg)
[2018-05-24 22:39] LABS: BASOPHILS # (AUTO) 0.1 X10'3 (0-0.2); BASOPHILS % (AUTO) 0.8 % (0-1); EOSINOPHILS # (AUTO) 0.3 X10'3 (0-0.9); EOSINOPHILS % (AUTO) 3.3 % (0-6); HEMATOCRIT 47.3 % (42.0-52.0); HEMOGLOBIN 15.1 g/dl (14.0-17.9); LYMPHOCYTES # (AUTO) 2.1 X10'3 (1.1-4.8); LYMPHOCYTES % (AUTO) 19.4 % (21-51); MEAN CORPUSCULAR HEMOGLOBIN 27.9 PG (27.0-31.0); MEAN CORPUSCULAR VOLUME 87.3 FL (78-98); MEAN PLATELET VOLUME 12.7 FL (7.4-10.4); MONOCYTES # (AUTO) 0.6 X10'3 (0-0.9); MONOCYTES % (AUTO) 5.4 % (2-12); NEUTROPHILS # (AUTO) 7.6 X10'3 (1.8-7.7); NEUTROPHILS % (AUTO) 71.1 % (42-75); PLATELET COUNT 187 X10'3 (140-440); RED BLOOD COUNT 5.42 X10'6 (4.70-6.10); RED CELL DISTRIBUTION WIDTH 14.7 % (11.5-14.5); WHITE BLOOD COUNT 10.7 X10'3 (4.5-11.0)
[2018-05-24 22:42] LABS: CLARITY,URINE CLEAR (Clear); COLOR,URINE YELLOW (Yellow); GLUCOSE, URINE NEGATIVE (Neg); KETONES,URINE TRACE mg/dl (Neg); LEUKOCYTE ESTERASE ,URINE NEGATIVE (Neg); NITRITES, URINE NEGATIVE (Neg); OCCULT BLOOD,URINE NEGATIVE (Neg); PROTEIN,URINE NEGATIVE (Neg); UROBILINOGEN,URINE 0.2 E.U/dL (0.2-1.0)
[2018-05-24 22:44] LABS: UA COLLECTION TYPE CLN CATCH MIDSTREAM
[2018-05-24 22:57] LABS: ALANINE AMINOTRANSFERASE 24 U/L (12-78); ALBUMIN 3.4 G/DL (3.4-5.0); ALKALINE PHOSPHATASE 79 IU/L (46-116); ANION GAP 12 (8-16); ASPARTATE AMINO TRANSFERASE 17 U/L (10-37); BILIRUBIN,TOTAL 0.4 MG/DL (0.1-1.0); BLOOD UREA NITROGEN 14 MG/DL (7-18); BUN/CREATININE RATIO 13.3 (5.4-32.0); CALCIUM 8.4 MG/DL (8.5-10.1); CHLORIDE 104 MMOL/L (99-107); CREATININE 1.05 MG/DL (0.60-1.10); GLUCOSE 117 MG/DL (70-104); POTASSIUM 3.6 MMOL/L (3.5-5.1); SODIUM 143 MMOL/L (135-145); TOTAL CARBON DIOXIDE 27.3 MMOL/L (24-32); TOTAL PROTEIN 6.9 G/DL (6.4-8.2); eGFR 86 ML/MIN
[2018-05-24 23:05] LABS: ETHANOL < 0.010 GM/DL (0.0-0.010)
--- NOTE | 2018-05-24 23:47 | NUR ---
telepshych done. pt. very angry when answering questions.
--- NOTE | 2018-05-25 00:29 | NUR ---
Packet faxed to [facility].
--- NOTE | 2018-05-25 02:01 | NUR ---
pt sleeping at this time
[2018-05-25 05:09] LABS: LARGE PLATELETS MANY; PLATELET ESTIMATE NORMAL
--- NOTE | 2018-05-25 07:06 | NUR ---
Pt lying in bed resting. Pt states he has attempted to hurt himself before in the past but doesn't remember when. States he has a place to live but did not want to tell me where, has no family in the area. Informs me that he has "thoughts of harming self and others". Interrupts interview to ask when breakfast will be here. Not willing to answer further questions.
[2018-05-25] MEDS ORDERED: haloperidol 5mg tablet PO ONE (07:55)
[2018-05-25] MEDS ORDERED: LORazepam 1 MG tablet PO ONE ×2 (07:55→20:35)
--- NOTE | 2018-05-25 08:09 | NUR ---
Pt tooks meds. He is now sleeping.
--- NOTE | 2018-05-25 09:20 | NUR ---
Pt sleeping with no distress noted.
--- NOTE | 2018-05-25 10:38 | NUR ---
Sleeping. Respirations even and unlabored.
--- NOTE | 2018-05-25 20:35 | NUR ---
one time dose Ativan 1mg po for anxiety, rec'd from Dr. Nicole
[2018-05-26 06:08] VITALS: BP 110/67
--- NOTE | 2018-05-26 07:05 | NUR ---
Pt sleeping on right side, in no distress at this time.
--- NOTE | 2018-05-26 08:15 | NUR ---
Pt in bed awake in no distress. Pt. requested to go to [facility]. Dr Doyle met with client and made decision to discharge him. Pt given pants and a jacket appropriate for the weather and also a bag lunch. Valuables returned to pt. [facility] was called to take him to [facility]. D/C paperwork reviewed and signed with pt.
== END 2018-05-26 09:05 ==
LOC: ER 21:43
DX: R45.851 Suicidal ideations (principal); F15.10 Other stimulant abuse, uncomplicated; F41.9 Anxiety disorder, unspecified; F32.9 Major depressive disorder, single episode, unspecified; F20.9 Schizophrenia, unspecified; Z59.0 Homelessness; Z60.2 Problems related to living alone; Z56.0 Unemployment, unspecified
CPT/HCPCS: 36415; 80053; 80305; 80320; 81003; 84443; 85025; 99285

== ENCOUNTER 2018-06-24 04:01 | Emergency (ER) | payer MEDICAID ==
[~2018-06-24] VITALS: Ht 170.2 cm; Wt 81.8 kg
--- NOTE | 2018-06-24 04:17 | NUR ---
Patient has no medical complaints. He requests medical clearance for detox.
[2018-06-24 04:46] VITALS: BP 132/63
== END 2018-06-24 04:48 | disposition home or self-care (01) ==
LOC: ER 04:01
DX: F15.90 Other stimulant use, unspecified, uncomplicated (principal); Z53.21 Procedure and treatment not carried out due to patient leaving prior to being seen by health care provider; Z60.2 Problems related to living alone; Z56.0 Unemployment, unspecified; Z59.0 Homelessness
CPT/HCPCS: 99281

== ENCOUNTER 2018-08-08 03:10 | Emergency (ER) | payer MEDICAID ==
[~2018-08-08] VITALS: Ht 167.6 cm; Wt 67.5 kg
[2018-08-08 03:32] VITALS: BP 137/93
== END 2018-08-08 07:12 | disposition left against medical advice (07) ==
LOC: ER 03:12
DX: L08.89 Other specified local infections of the skin and subcutaneous tissue (principal); Z53.21 Procedure and treatment not carried out due to patient leaving prior to being seen by health care provider

== ENCOUNTER 2018-08-12 17:30 | Emergency (ER) | payer MEDICAID ==
[~2018-08-12] VITALS: Ht 167.6 cm; Wt 76.0 kg
--- NOTE | 2018-08-12 18:28 | NUR ---
DR. LEACH AT BEDSIDE. PT REPORTS THOUGHTS OF SELF HARM. PT WITH EXTENSIVE HISTORY OF ER VISITS AND MENTAL HEALTH HISTORY. HE HAD REQUESTED A SNACK AND REFUSED HIS BLOOD DRAW EARLIER AND STATED "NO SNACK...NO BLOOD". 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 PT DID PROVIDE URINE. PT ASKED BY MYSELF ABOUT HIS REFUSAL OF BLOOD AND REPORTS THAT HE GETS "WOOZY WHEN MY BLOOD IS DRAWN...SO I LIKE TO HAVE A SNACK". I UPDATED DR. LEACH OF THIS AND HE REQUESTS TO FEED THE PT AND NOT GET LABS AT THIS TIEM AND PERHAPS THIS ALL THE PT IS IN NEED OF AT THIS TIME. RETURNED TO TALK WITH PT. PT PROVIDED SOEM FOOD.
[2018-08-12 19:05] VITALS: BP 180/20
== END 2018-08-12 19:06 | disposition home or self-care (01) ==
LOC: ER 17:30
DX: F32.9 Major depressive disorder, single episode, unspecified (principal); F41.9 Anxiety disorder, unspecified; F20.9 Schizophrenia, unspecified; F15.90 Other stimulant use, unspecified, uncomplicated; Z59.0 Homelessness; Z56.0 Unemployment, unspecified
CPT/HCPCS: 99284

== ENCOUNTER 2018-08-22 00:59 | Emergency (ER) | payer MEDICAID ==
[~2018-08-22] VITALS: Ht 167.6 cm; Wt 63.0 kg
[2018-08-22 01:07] VITALS: BP 149/95
== END 2018-08-22 02:07 | disposition home or self-care (01) ==
LOC: ER 01:00
DX: F32.9 Major depressive disorder, single episode, unspecified (principal); F41.9 Anxiety disorder, unspecified; F20.9 Schizophrenia, unspecified; F15.90 Other stimulant use, unspecified, uncomplicated; Z76.5 Malingerer [conscious simulation]; Z56.0 Unemployment, unspecified; Z59.0 Homelessness; Z60.2 Problems related to living alone
CPT/HCPCS: 99284

== ENCOUNTER 2018-09-09 15:58 | Emergency (ER) | payer MEDICAID ==
[~2018-09-09] VITALS: Ht 167.6 cm; Wt 77.5 kg
[2018-09-09 16:10] VITALS: BP 134/88
--- NOTE | 2018-09-09 19:32 | NUR ---
third call to room, no answer, pt left
== END 2018-09-09 19:33 | disposition left against medical advice (07) ==
LOC: ER 15:59
DX: R45.851 Suicidal ideations (principal); Z53.21 Procedure and treatment not carried out due to patient leaving prior to being seen by health care provider

== ENCOUNTER 2018-10-16 17:31 | Emergency (ER) | payer MEDICAID ==
[~2018-10-16] VITALS: Ht 160 cm; Wt 63.6 kg
[2018-10-16] MEDS ORDERED: normal saline 1000ML IV soln IVB ONE (18:25)
[2018-10-16 18:43] LABS: ALANINE AMINOTRANSFERASE 29 U/L (12-78); ALBUMIN 3.7 G/DL (3.4-5.0); ALKALINE PHOSPHATASE 73 IU/L (46-116); ANION GAP 10 (8-16); ASPARTATE AMINO TRANSFERASE 30 U/L (10-37); BILIRUBIN,TOTAL 0.5 MG/DL (0.1-1.0); BLOOD UREA NITROGEN 12 MG/DL (7-18); BUN/CREATININE RATIO 11.8 (5.4-32.0); CHLORIDE 105 MMOL/L (99-107); CREATININE 1.02 MG/DL (0.60-1.10); ETHANOL < 0.010 GM/DL (0.0-0.010); GLUCOSE 142 MG/DL (70-104); POTASSIUM 3.5 MMOL/L (3.5-5.1); SODIUM 139 MMOL/L (135-145); TOTAL CARBON DIOXIDE 23.7 MMOL/L (24-32); TOTAL PROTEIN 7.4 G/DL (6.4-8.2); eGFR 89 ML/MIN
[2018-10-16 19:01] LABS: LARGE PLATELETS MODERATE; PLATELET ESTIMATE NORMAL
[2018-10-16 19:12] LABS: BASOPHILS # (AUTO) 0.1 X10'3 (0-0.2); BASOPHILS % (AUTO) 0.9 % (0-1); EOSINOPHILS # (AUTO) 0.2 X10'3 (0-0.9); EOSINOPHILS % (AUTO) 1.6 % (0-6); HEMATOCRIT 46.5 % (42.0-52.0); HEMOGLOBIN 15.4 g/dl (14.0-17.9); LYMPHOCYTES # (AUTO) 2.4 X10'3 (1.1-4.8); LYMPHOCYTES % (AUTO) 18.9 % (21-51); MEAN CORPUSCULAR HEMOGLOBIN 28.6 PG (27.0-31.0); MEAN CORPUSCULAR HGB CONC 33.2 g/dL (33.0-36.5); MEAN CORPUSCULAR VOLUME 86.3 FL (78-98); MEAN PLATELET VOLUME 11.6 FL (7.4-10.4); MONOCYTES # (AUTO) 0.8 X10'3 (0-0.9); NEUTROPHILS # (AUTO) 9.2 X10'3 (1.8-7.7); NEUTROPHILS % (AUTO) 72.6 % (42-75); PLATELET COUNT 194 X10'3 (140-440); RED BLOOD COUNT 5.38 X10'6 (4.70-6.10); RED CELL DISTRIBUTION WIDTH 14.2 % (11.5-14.5); WHITE BLOOD COUNT 12.7 X10'3 (4.5-11.0)
--- NOTE | 2018-10-16 19:15 | NUR ---
ASSISTED PT WITH URINAL TO OBTAIN URINE SAMPLE. PT ABLE TO STAND WITH ASSISTANCE DUE TO DROWSINESS AND CONTINUED TO CALL RN "MOM". PT ORIENTED TO HOSPITAL AND TO RN BUT PT MUMBLING AND CANNOT BE UNDERSTOOD
[2018-10-16 19:24] LABS: CLARITY,URINE CLEAR (Clear); COLOR,URINE YELLOW (Yellow); GLUCOSE, URINE NEGATIVE (Neg); KETONES,URINE NEGATIVE (Neg); LEUKOCYTE ESTERASE ,URINE NEGATIVE (Neg); NITRITES, URINE NEGATIVE (Neg); OCCULT BLOOD,URINE NEGATIVE (Neg); PROTEIN,URINE NEGATIVE (Neg); UROBILINOGEN,URINE 0.2 E.U/dL (0.2-1.0)
[2018-10-16 19:28] LABS: UA COLLECTION TYPE VOIDED
[2018-10-16 19:31] LABS: URINE AMPHETAMINE SCREEN POSITIVE (Neg); URINE BARBITUATE SCREEN NEGATIVE (Neg); URINE BENZODIAZEPINES SCREEN NEGATIVE (Neg); URINE CANNABINOID SCREEN NEGATIVE (Neg); URINE COCAINE SCREEN NEGATIVE (Neg); URINE METHADONE SCREEN NEGATIVE (Neg); URINE OPIATE SCREEN NEGATIVE (Neg); URINE PHENCYCLIDINE SCREEN NEGATIVE (Neg)
--- NOTE | 2018-10-16 20:15 | NUR ---
PT APPEARS TO BE SLEEPING, RESTING COMFORTABLY. CHEST RISING EVENLY. WILL CONTINUE TO MONITOR
--- NOTE | 2018-10-16 21:15 | NUR ---
PT APPEARS TO BE SLEEPING, RESTING COMFORTABLY. CHEST RISING EVENLY. WILL CONTINUE TO MONITOR
--- NOTE | 2018-10-16 22:15 | NUR ---
PT APPEARS TO BE SLEEPING, RESTING COMFORTABLY. CHEST RISING EVENLY. WILL CONTINUE TO MONITOR
--- NOTE | 2018-10-16 23:15 | NUR ---
PT AWAKE AND EATING MEAL TRAY. PT APPEARS TO BE MORE ALERT, ANSWERING QUESTIONS, AND FOLLOWING COMMANDS.
[2018-10-16 23:57] VITALS: BP 128/78
--- NOTE | 2018-10-17 00:01 | NUR ---
ROUNDED ON PT, PT FINISHED MEAL TRAY 100%. PT ALSO URINATED 800 ML. PT ABLE TO ANSWER QUESTIONS AND FOLLOW COMMANDS, A&OX4. POSITIONED PT COMFORTABLY AND TURNED OFF LIGHTS, PT RESTING.
--- NOTE | 2018-10-17 02:35 | NUR ---
Pt remains asleep, RR 14 and unlabored, blankets covering to his waist.
--- NOTE | 2018-10-17 03:30 | NUR ---
PT REMAINS SLEEPING. RR AT 12, UNLABORED AND EVEN
--- NOTE | 2018-10-17 04:44 | NUR ---
PT REMAINS SLEEPING, ON BACK WITH NO BLANKETS ON PT. RR AT 12, UNLABORED AND EVEN
--- NOTE | 2018-10-17 05:55 | NUR ---
PT APPEARS TO BE SLEEPING, PT ON BACK, BLANKET UP TO WAIST. RR 14, EVEN AND UNLABORED
--- NOTE | 2018-10-17 05:58 | NUR ---
FAXED PACKET TO [facility]
--- NOTE | 2018-10-17 06:50 | NUR ---
Note jose g in EDM - 10/17/18 at 0844 by FAUSTINA pt brought over from rm 15. pt gowned in green scrubs. denies any s/i or any plan to harm self. pt laying in bed. no needs at this time
--- NOTE | 2018-10-17 07:00 | NUR ---
Patient was moved from ER bed 15 to overflow bed 24.
--- NOTE | 2018-10-17 07:18 | NUR ---
pt brought over from rm 15. pt is gowned in green scrubs. pt denies anyn s/i at this time. pt states" i am just hungry" pt lying in bed resting.
--- NOTE | 2018-10-17 08:07 | NUR ---
pt sitting up and eating breakfast. denies any needs at this time
--- NOTE | 2018-10-17 08:54 | NUR ---
pt resting at this time. no signs of distress
--- NOTE | 2018-10-17 10:03 | NUR ---
pt resting comfortably at this time. no signs of distress
--- NOTE | 2018-10-17 11:08 | NUR ---
pt resting comfortably in bed. no signs of distress noted at this time
--- NOTE | 2018-10-17 11:44 | NUR ---
pt resting comfortably in bed. no signs of distress noted at this time
--- NOTE | 2018-10-17 12:30 | NUR ---
AWAKE AND RESTING IN BED. PATIENT HAS DISCHARGE PENDING. COOPERATIVE WITH CARE.
--- NOTE | 2018-10-17 13:00 | NUR ---
DISCHARGE PAPERS GIVEN TO PATIENT. ATE LUNCH. ALL BELONGINGS RETURNED TO PATIENT. IV REMOVED WITH TIP INTACT. VERBALIZED UNDERSTANDING OF INSTRUCTIONS. DEPARTED, WITH VERTICA ARCHITECT, IN GOOD CONDITION.
== END 2018-10-17 13:05 | disposition home or self-care (01) ==
LOC: ER 17:32
DX: F29 Unspecified psychosis not due to a substance or known physiological condition (principal); F41.9 Anxiety disorder, unspecified; F32.9 Major depressive disorder, single episode, unspecified; F20.9 Schizophrenia, unspecified; F15.10 Other stimulant abuse, uncomplicated; Z91.19 Patient's noncompliance with other medical treatment and regimen; Z59.0 Homelessness; Z56.0 Unemployment, unspecified; Z60.2 Problems related to living alone
CPT/HCPCS: 36415; 80053; 80305; 80320; 81003; 85025; 99285; J7030

== ENCOUNTER 2018-12-09 16:17 | Emergency (ER) | payer MEDICAID ==
--- NOTE | 2018-12-09 16:24 | NUR ---
PT ARRIVED VIA EMS WITH NO CHIEF COMPLAINT. PT REFUSED VS AND TRIAGE, ASKED FOR A SANDWICH AND THEN LEFT THE ER.
== END 2018-12-09 16:32 | disposition left against medical advice (07) ==
LOC: ER 16:17
DX: M54.9 Dorsalgia, unspecified (principal); Z53.21 Procedure and treatment not carried out due to patient leaving prior to being seen by health care provider

== ENCOUNTER 2018-12-13 20:37 | Emergency (ER) | payer MEDICAID ==
[~2018-12-13] VITALS: Ht 170.2 cm; Wt 72.0 kg
[2018-12-13] MEDS ORDERED: naproxen 500mg tablet PO ONE ×2 (20:45→21:25)
[2018-12-13 20:56] VITALS: BP 130/82
== END 2018-12-13 21:37 | disposition home or self-care (01) ==
LOC: ER 20:38
DX: M54.9 Dorsalgia, unspecified (principal); G89.29 Other chronic pain; M25.552 Pain in left hip; M79.606 Pain in leg, unspecified; F41.9 Anxiety disorder, unspecified; F32.9 Major depressive disorder, single episode, unspecified; F20.9 Schizophrenia, unspecified; F15.90 Other stimulant use, unspecified, uncomplicated; Z60.2 Problems related to living alone; Z59.0 Homelessness; Z56.0 Unemployment, unspecified
CPT/HCPCS: 99283

== ENCOUNTER 2019-01-05 21:11 | Emergency (ER) | payer MEDICAID ==
[~2019-01-05] VITALS: Ht 167.6 cm; Wt 77.2 kg
[2019-01-05 21:12] VITALS: BP 156/104
== END 2019-01-05 21:49 | disposition left against medical advice (07) ==
LOC: ER 21:12
DX: G43.909 Migraine, unspecified, not intractable, without status migrainosus (principal); F20.9 Schizophrenia, unspecified; Z53.21 Procedure and treatment not carried out due to patient leaving prior to being seen by health care provider

== ENCOUNTER 2019-01-16 14:00 | Emergency (ER) | payer MEDICAID ==
[~2019-01-16] VITALS: Ht 167.6 cm; Wt 75.0 kg
--- NOTE | 2019-01-16 15:30 | NUR ---
PT IS 28 YO MALE PLACED ON 1798 FOR "I DON'T FEEL LIKE MYSELF...I JUST WANT TO HURT MYSELF...CAN I HAVE A SANDWICH AND SODA", PT DENIES PLAN FOR SUICIDE, NO HOMICIDAL THOUGHTS/PLAN, "I NEED TO BE PUT ON A HOLD...JUST NEED TO", PT SAID HE HAS BEEN OFF STREET [employer]U[facility] FOR ONE MONTH, KICKED OUT OF [facility] "I DON'T KNOW WHY", PT IS POOR HISTORIAN, GIVING VAGUE ANSWERS OR NOT ANSWERING SOME QUESTIONS, PT HAS POOR HYGIENE, COMPLIANT WITH DRESSING IN GREEN SCRUBS.
--- NOTE | 2019-01-16 15:37 | NUR ---
labs have been drawn
[2019-01-16 15:45] LABS: BASOPHILS # (AUTO) 0.1 X10'3 (0-0.2); BASOPHILS % (AUTO) 1.3 % (0-1); EOSINOPHILS # (AUTO) 0.3 X10'3 (0-0.9); LYMPHOCYTES # (AUTO) 2.4 X10'3 (1.1-4.8); LYMPHOCYTES % (AUTO) 25.7 % (21-51); NEUTROPHILS # (AUTO) 5.9 X10'3 (1.8-7.7); WHITE BLOOD COUNT 9.2 X10'3 (4.5-11.0)
--- NOTE | 2019-01-16 15:46 | NUR ---
gave pt warm blanket, sandwich and pitcher of water. Pt aware UA needed, unable to give sample
[2019-01-16 15:47] LABS: HEMATOCRIT 42.2 % (42.0-52.0); HEMOGLOBIN 14.5 g/dl (14.0-17.9); MEAN CORPUSCULAR HEMOGLOBIN 29.6 PG (27.0-31.0); MEAN CORPUSCULAR HGB CONC 34.4 g/dL (33.0-36.5); MEAN CORPUSCULAR VOLUME 85.9 FL (78-98); MEAN PLATELET VOLUME 10.8 FL (7.4-10.4); MONOCYTES # (AUTO) 0.6 X10'3 (0-0.9); MONOCYTES % (AUTO) 6.4 % (2-12); NEUTROPHILS % (AUTO) 63.6 % (42-75); RED CELL DISTRIBUTION WIDTH 13.6 % (11.5-14.5)
[2019-01-16 15:59] LABS: ALANINE AMINOTRANSFERASE 29 U/L (12-78); ALBUMIN 3.4 G/DL (3.4-5.0); ALBUMIN/GLOBULIN RATIO 1.1 (1.1-1.5); ALKALINE PHOSPHATASE 79 IU/L (46-116); ANION GAP 6 (8-16); ASPARTATE AMINO TRANSFERASE 21 U/L (10-37); BILIRUBIN,TOTAL 0.8 MG/DL (0.1-1.0); BLOOD UREA NITROGEN 9 MG/DL (7-18); BUN/CREATININE RATIO 11.1 (5.4-32.0); CHLORIDE 109 MMOL/L (99-107); CREATININE 0.81 MG/DL (0.60-1.10); GLUCOSE 98 MG/DL (70-104); POTASSIUM 3.2 MMOL/L (3.5-5.1); SODIUM 145 MMOL/L (135-145); TOTAL CARBON DIOXIDE 29.7 MMOL/L (24-32); TOTAL PROTEIN 6.5 G/DL (6.4-8.2); eGFR > 90 ML/MIN
[2019-01-16 16:01] LABS: ETHANOL < 0.010 GM/DL (0.0-0.010)
[2019-01-16 16:03] LABS: PLATELET COUNT 196 X10'3 (140-440)
--- NOTE | 2019-01-16 16:30 | NUR ---
pt sleeping, easily arouseable, able to give urine sample, 350ml of dark yellow urine out
--- NOTE | 2019-01-16 16:50 | NUR ---
pt is sleeping, resp even and unlabored
[2019-01-16 16:57] LABS: URINE AMPHETAMINE SCREEN POSITIVE (Neg); URINE BARBITUATE SCREEN NEGATIVE (Neg); URINE BENZODIAZEPINES SCREEN NEGATIVE (Neg); URINE CANNABINOID SCREEN NEGATIVE (Neg); URINE COCAINE SCREEN NEGATIVE (Neg); URINE METHADONE SCREEN NEGATIVE (Neg); URINE OPIATE SCREEN NEGATIVE (Neg); URINE PHENCYCLIDINE SCREEN NEGATIVE (Neg)
[2019-01-16 17:07] LABS: CLARITY,URINE CLEAR (Clear); COLOR,URINE YELLOW (Yellow); GLUCOSE, URINE NEGATIVE (Neg); KETONES,URINE NEGATIVE (Neg); LEUKOCYTE ESTERASE ,URINE NEGATIVE (Neg); NITRITES, URINE NEGATIVE (Neg); OCCULT BLOOD,URINE TRACE-INTACT (Neg); PROTEIN,URINE NEGATIVE (Neg)
[2019-01-16 17:14] LABS: UA COLLECTION TYPE URINAL
[2019-01-16 17:15] LABS: BACTERIA,URINE NONE SEEN /HPF (Neg); MUCUS STRANDS FEW /LPF (Neg); RBC,URINE 0-2 /HPF (0-2); SQUAMOUS EPITHELIAL CELL,UR NONE SEEN /LPF (FEW); WBC,URINE 0-4 /HPF (0-4)
--- NOTE | 2019-01-16 18:45 | NUR ---
recieved report from Kyree Hansen, assumed care. Pt. is resting quietly in bed. breathing even and non-labored.
--- NOTE | 2019-01-16 20:00 | NUR ---
Packet sent to [facility]. Confirmed receipt of packet with Gene @ [facility] office.
--- NOTE | 2019-01-17 02:00 | NUR ---
PATIENT LYING ON LEFT SIDE, EYES CLOSED, EQUAL RISE AND FALL OF CHEST. PATIENT HAS BEEN ASLEEP SINCE COMING OVER TO OVERFLOW.
--- NOTE | 2019-01-17 04:00 | NUR ---
PATIENT LYING ON BACK, EYES CLOSED
--- NOTE | 2019-01-17 07:36 | NUR ---
[facility] HERE TO EVALUATE CLIENT. CLIENT AGITATED AND YELLING
--- NOTE | 2019-01-17 09:02 | NUR ---
PT UP TO BATHROOM
--- NOTE | 2019-01-17 10:04 | NUR ---
Pt asleep in no apparent distress on right side. Respirations are even and unlabored
--- NOTE | 2019-01-17 12:05 | NUR ---
Pt asleep in no apparent distress on back side. Respirations are even and unlabored
--- NOTE | 2019-01-17 13:38 | NUR ---
[facility] unleavened dough mixer at bedside
--- NOTE | 2019-01-17 14:09 | NUR ---
Pt asleep. [facility] placed pt on 5150 hold
--- NOTE | 2019-01-17 14:49 | NUR ---
Pt asleep on left side in no apparent distress. Respirations are even and unlabored
--- NOTE | 2019-01-17 15:50 | NUR ---
Pt asleep in no apparent distress on right side. Respirations are even and unlabored
--- NOTE | 2019-01-17 17:06 | NUR ---
Pt asleep in no apparent distress on back. Respirations are even and unlabored
--- NOTE | 2019-01-17 17:50 | NUR ---
Pt asleep in no apparent distress on right side. Respirations are even and unlabored
--- NOTE | 2019-01-17 21:16 | NUR ---
pt is sleeping, no s/s of distress noted.
--- NOTE | 2019-01-17 22:09 | NUR ---
pt is sleeping, no s/s of distress noted.
--- NOTE | 2019-01-18 00:31 | NUR ---
pt is sleeping, rr unlabored, will continue to monitor
--- NOTE | 2019-01-18 01:19 | NUR ---
pt is sleeping, no s/s of distress noted.
--- NOTE | 2019-01-18 02:12 | NUR ---
Pt asleep on his back in no apparent distress. Respirations are even and unlabored.
--- NOTE | 2019-01-18 04:18 | NUR ---
pt appears to be sleeping, no distress noted.
--- NOTE | 2019-01-18 06:30 | NUR ---
Patient sleeping supine. No distress observed. Continue to monitor.
--- NOTE | 2019-01-18 07:50 | NUR ---
BG 55
--- NOTE | 2019-01-18 08:05 | NUR ---
Patient sitting up and eating breakfast. No distress observed. Continue to monitor.
--- NOTE | 2019-01-18 10:15 | NUR ---
RN awoke patient to speak to him. Patient states he is still depressed and suicidal. Continue to monitor.
[2019-01-18] MEDS ORDERED: potassium Cl 20 mEq SR tablet PO STA (11:35)
--- NOTE | 2019-01-18 11:55 | NUR ---
RN gave patient some crackers. No distress observed. Continue to monitor.
--- NOTE | 2019-01-18 12:35 | NUR ---
Patient sleeping. No distress observed. Continue to monitor.
--- NOTE | 2019-01-18 13:29 | NUR ---
Breaking primary RN, pt is in bed, laying upside down in bed on left side, eyes closed, appears to be sleeping, no s/s of agitaion observed
--- NOTE | 2019-01-18 15:22 | NUR ---
Patient continues to sleep on left side. No distress observed. Continue to monitor.
--- NOTE | 2019-01-18 15:25 | NUR ---
Patient ambulatory to BR, steady gait. No distress observed. Continue to monitor.
--- NOTE | 2019-01-18 17:23 | NUR ---
Patient sleeping on left side. No distress observed. Continue to monitor.
[2019-01-18] MEDS: hydrOXYzine 25 MG tablet PO PRN (18:00)
--- NOTE | 2019-01-18 19:00 | NUR ---
Pt resting in bed, respirations normal. No s/s of distress.
--- NOTE | 2019-01-18 20:33 | NUR ---
Pt up to bathroom.
[2019-01-19 06:09] VITALS: BP 149/98
--- NOTE | 2019-01-19 06:48 | NUR ---
Pt is currently sleeping supine peacefully. No distress observed, will continue to monitor.
--- NOTE | 2019-01-19 08:34 | NUR ---
GIVING PRIMARY NURSE A BREAK, PT. IS LAYING ON LEFT SIDE, SLEEPING COMFORTABLY. PT. IS IN NO DISTRESS.
--- NOTE | 2019-01-19 10:34 | NUR ---
Pt is resting in bed peacefully at this time with no distress observed. Will continue to monitor.
[2019-01-19] MEDS: hydrOXYzine 25 MG tablet PO PRN (12:11)
--- NOTE | 2019-01-19 12:58 | NUR ---
GIVING PRIMARY NURSE A BREAK, PT. IS SLEEPING WITH HEAD AT THE END OF BED. PT. IS IN NO DISTRESS.
== END 2019-01-19 13:59 | disposition home or self-care (01) ==
LOC: ER 14:01
DX: F32.9 Major depressive disorder, single episode, unspecified (principal); F41.9 Anxiety disorder, unspecified; F20.9 Schizophrenia, unspecified; F17.200 Nicotine dependence, unspecified, uncomplicated; F15.90 Other stimulant use, unspecified, uncomplicated; Z56.0 Unemployment, unspecified; Z59.0 Homelessness
CPT/HCPCS: 36415; 80053; 80305; 80320; 81001; 84443; 85025; 99285; Q0177; Z7610

== ENCOUNTER 2019-01-28 01:39 | Emergency (ER) | payer MEDICAID ==
[~2019-01-28] VITALS: Ht 172.7 cm; Wt 71.0 kg
--- NOTE | 2019-01-28 02:04 | NUR ---
PATIENT STATES "i WANT TO HURT PEOPLE, BUT I DONT WANT TO HURT PEOPLE. ILL HURT MYSELF BEFORE I HURT PEOPLE." ASKED PATIENT IF HE IS FEELING SUICIDAL OR HOMICIDAL AND PATIENT STATES NO.
[2019-01-28 03:45] LABS: BASOPHILS # (AUTO) 0.1 X10'3 (0-0.2); EOSINOPHILS # (AUTO) 0.1 X10'3 (0-0.9); HEMATOCRIT 47.7 % (42.0-52.0); HEMOGLOBIN 16.1 g/dl (14.0-17.9); MEAN CORPUSCULAR HEMOGLOBIN 29.9 PG (27.0-31.0); WHITE BLOOD COUNT 9.9 X10'3 (4.5-11.0)
--- NOTE | 2019-01-28 03:46 | NUR ---
The patient was moved to bed 24. He is labile in mood. He denies drugs or etoh use. He is asking for food. He reports he is hearing voices. He is wanting medications "to calm down" He is well known to the ER with frequent visits. He was last here on 01/16 and was positive for methamphetamines. He denies that he takes any medications. He is chronically homeless in the [facility].
[2019-01-28 03:47] LABS: EOSINOPHILS % (AUTO) 1.1 % (0-6); LYMPHOCYTES % (AUTO) 30.6 % (21-51); MEAN CORPUSCULAR HGB CONC 33.8 g/dL (33.0-36.5); MEAN CORPUSCULAR VOLUME 88.4 FL (78-98); MEAN PLATELET VOLUME 11.1 FL (7.4-10.4); MONOCYTES # (AUTO) 0.7 X10'3 (0-0.9); MONOCYTES % (AUTO) 6.8 % (2-12); NEUTROPHILS % (AUTO) 60.5 % (42-75); RED BLOOD COUNT 5.39 X10'6 (4.70-6.10); RED CELL DISTRIBUTION WIDTH 13.8 % (11.5-14.5)
[2019-01-28 03:58] LABS: ALANINE AMINOTRANSFERASE 36 U/L (12-78); ALBUMIN 4.3 G/DL (3.4-5.0); ALBUMIN/GLOBULIN RATIO 1.1 (1.1-1.5); ALKALINE PHOSPHATASE 67 IU/L (46-116); ANION GAP 6 (8-16); ASPARTATE AMINO TRANSFERASE 25 U/L (10-37); BLOOD UREA NITROGEN 11 MG/DL (7-18); BUN/CREATININE RATIO 15.1 (5.4-32.0); CALCIUM 9.1 MG/DL (8.5-10.1); CHLORIDE 103 MMOL/L (99-107); CREATININE 0.73 MG/DL (0.60-1.10); GLUCOSE 82 MG/DL (70-104); POTASSIUM 3.8 MMOL/L (3.5-5.1); SODIUM 141 MMOL/L (135-145); TOTAL CARBON DIOXIDE 32.2 MMOL/L (24-32); TOTAL PROTEIN 8.1 G/DL (6.4-8.2); eGFR > 90 ML/MIN
[2019-01-28 04:00] LABS: ETHANOL < 0.010 GM/DL (0.0-0.010)
--- NOTE | 2019-01-28 04:07 | NUR ---
The patient is hostile with staff during interventions. He refused to cooperate with registration and was verbally hostile. Dr. Root made aware and no new orders at this time.
[2019-01-28 04:08] LABS: URINE AMPHETAMINE SCREEN POSITIVE (Neg); URINE BARBITUATE SCREEN NEGATIVE (Neg); URINE BENZODIAZEPINES SCREEN NEGATIVE (Neg); URINE CANNABINOID SCREEN NEGATIVE (Neg); URINE COCAINE SCREEN NEGATIVE (Neg); URINE METHADONE SCREEN NEGATIVE (Neg); URINE OPIATE SCREEN NEGATIVE (Neg); URINE PHENCYCLIDINE SCREEN NEGATIVE (Neg)
[2019-01-28 04:14] LABS: PLATELET COUNT 213 X10'3 (140-440)
[2019-01-28 04:15] LABS: GIANT PLATELET FEW; LARGE PLATELETS MODERATE; PLATELET ESTIMATE NORMAL
--- NOTE | 2019-01-28 04:19 | NUR ---
The patient's drug screen was positive for amphetamines.
--- NOTE | 2019-01-28 04:23 | NUR ---
Pt packet faxed to [facility]
--- NOTE | 2019-01-28 04:39 | NUR ---
The patient appears to be asleep at this time.
[2019-01-28 05:55] VITALS: BP 126/79
--- NOTE | 2019-01-28 06:30 | NUR ---
Patient sleeping supine with his head at the foot of the bed. No distress observed. Continue to monitior.
--- NOTE | 2019-01-28 07:36 | NUR ---
Patient continues to sleep supine. No distress observed. Continue to monitor.
--- NOTE | 2019-01-28 08:22 | NUR ---
Patient eating breakfast. No distress observed. Continue to monitor.
--- NOTE | 2019-01-28 09:40 | NUR ---
[facility] worker, Chayito, speaking to patient.
--- NOTE | 2019-01-28 10:50 | NUR ---
Paitnet sleeping. No distress observed. Continue to monitor.
== END 2019-01-28 11:40 | disposition home or self-care (01) ==
LOC: ER 01:42
DX: R45.851 Suicidal ideations (principal); F41.9 Anxiety disorder, unspecified; F20.9 Schizophrenia, unspecified; F17.200 Nicotine dependence, unspecified, uncomplicated; F15.90 Other stimulant use, unspecified, uncomplicated; Z60.2 Problems related to living alone; Z59.0 Homelessness; Z56.0 Unemployment, unspecified
CPT/HCPCS: 36415; 80053; 80305; 80320; 85025; 99284

== ENCOUNTER 2019-02-01 03:05 | Emergency (ER) | payer MEDICAID ==
[~2019-02-01] VITALS: Ht 170.2 cm; Wt 79.2 kg
[2019-02-01 03:10] VITALS: BP 140/78
--- NOTE | 2019-02-01 03:13 | NUR ---
Patient was asked why he was here and he said he really didn't know, he was bloated and thought he might hurt himself. "It was wet and raining and I was cold so I called EMS".
[2019-02-01] MEDS ORDERED: LORazepam 1 MG tablet PO ONE (03:50)
== END 2019-02-01 04:29 | disposition home or self-care (01) ==
LOC: ER 03:06
DX: T73.0XXA Starvation, initial encounter (principal); F41.9 Anxiety disorder, unspecified; F15.90 Other stimulant use, unspecified, uncomplicated; F32.9 Major depressive disorder, single episode, unspecified; F20.9 Schizophrenia, unspecified; Z59.0 Homelessness; Z56.0 Unemployment, unspecified; X58.XXXA Exposure to other specified factors, initial encounter
CPT/HCPCS: 99284

== ENCOUNTER 2019-02-03 04:45 | Emergency (ER) | payer MEDICAID ==
[~2019-02-03] VITALS: Ht 170.2 cm; Wt 75.0 kg
--- NOTE | 2019-02-03 05:25 | NUR ---
While clearing out patient's room, He stated that he was in the hospital for a warm bed and food since it is raining outside. when asked for clarification, he acknowleged that his purpose for being in the ER is not what the hiospital is intended for. He then said, "thank you though".
[2019-02-03 05:31] LABS: BASOPHILS # (AUTO) 0.1 X10'3 (0-0.2); BASOPHILS % (AUTO) 0.5 % (0-1); EOSINOPHILS # (AUTO) 0.1 X10'3 (0-0.9); EOSINOPHILS % (AUTO) 0.7 % (0-6); HEMATOCRIT 48.1 % (42.0-52.0); HEMOGLOBIN 16.2 g/dl (14.0-17.9); LYMPHOCYTES # (AUTO) 2.4 X10'3 (1.1-4.8); LYMPHOCYTES % (AUTO) 21.1 % (21-51); MEAN CORPUSCULAR HEMOGLOBIN 29.4 PG (27.0-31.0); MEAN CORPUSCULAR HGB CONC 33.6 g/dL (33.0-36.5); MEAN CORPUSCULAR VOLUME 87.5 FL (78-98); MEAN PLATELET VOLUME 10.8 FL (7.4-10.4); MONOCYTES # (AUTO) 0.5 X10'3 (0-0.9); MONOCYTES % (AUTO) 4.1 % (2-12); NEUTROPHILS # (AUTO) 8.2 X10'3 (1.8-7.7); NEUTROPHILS % (AUTO) 73.6 % (42-75); PLATELET COUNT 208 X10'3 (140-440); RED CELL DISTRIBUTION WIDTH 13.9 % (11.5-14.5); WHITE BLOOD COUNT 11.2 X10'3 (4.5-11.0)
[2019-02-03 05:36] LABS: CLARITY,URINE CLEAR (Clear); COLOR,URINE STRAW (Yellow); GLUCOSE, URINE NEGATIVE (Neg); KETONES,URINE NEGATIVE (Neg); LEUKOCYTE ESTERASE ,URINE NEGATIVE (Neg); NITRITES, URINE NEGATIVE (Neg); OCCULT BLOOD,URINE NEGATIVE (Neg); PH,URINE 7.5 (4.8-8.0); PROTEIN,URINE NEGATIVE (Neg); UROBILINOGEN,URINE 0.2 E.U/dL (0.2-1.0)
[2019-02-03 05:38] LABS: UA COLLECTION TYPE CLN CATCH MIDSTREAM
[2019-02-03 05:47] LABS: ALANINE AMINOTRANSFERASE 25 U/L (12-78); ALBUMIN 3.9 G/DL (3.4-5.0); ALBUMIN/GLOBULIN RATIO 1.1 (1.1-1.5); ALKALINE PHOSPHATASE 72 IU/L (46-116); ANION GAP 8 (8-16); ASPARTATE AMINO TRANSFERASE 14 U/L (10-37); BILIRUBIN,TOTAL 0.8 MG/DL (0.1-1.0); BLOOD UREA NITROGEN 6 MG/DL (7-18); BUN/CREATININE RATIO 9.7 (5.4-32.0); CALCIUM 8.6 MG/DL (8.5-10.1); CHLORIDE 103 MMOL/L (99-107); CREATININE 0.62 MG/DL (0.60-1.10); ETHANOL < 0.010 GM/DL (0.0-0.010); GLUCOSE 87 MG/DL (70-104); POTASSIUM 3.5 MMOL/L (3.5-5.1); SODIUM 142 MMOL/L (135-145); TOTAL CARBON DIOXIDE 31.4 MMOL/L (24-32); TOTAL PROTEIN 7.6 G/DL (6.4-8.2); eGFR > 90 ML/MIN
[2019-02-03 05:48] LABS: URINE AMPHETAMINE SCREEN POSITIVE (Neg); URINE BARBITUATE SCREEN NEGATIVE (Neg); URINE BENZODIAZEPINES SCREEN NEGATIVE (Neg); URINE CANNABINOID SCREEN NEGATIVE (Neg); URINE COCAINE SCREEN NEGATIVE (Neg); URINE METHADONE SCREEN NEGATIVE (Neg); URINE OPIATE SCREEN NEGATIVE (Neg); URINE PHENCYCLIDINE SCREEN NEGATIVE (Neg)
--- NOTE | 2019-02-03 06:30 | NUR ---
Pt. currently sitting on chair, AOX4, resting. Pt. observed closely. Room is free of hazard that may be used to cause self harm.
[2019-02-03 06:56] LABS: LARGE PLATELETS FEW; PLATELET ESTIMATE NORMAL
--- NOTE | 2019-02-03 07:07 | NUR ---
PACKET FAXED TO [facility]
--- NOTE | 2019-02-03 08:13 | NUR ---
Pt. continues to rest, sitting on chair.
--- NOTE | 2019-02-03 13:10 | NUR ---
PT SITTING UP AT BEDSIDE EATING LUNCH AT THIS TIME
[2019-02-03 13:47] VITALS: BP 112/69
== END 2019-02-03 15:30 | disposition home or self-care (01) ==
LOC: ER 04:46
DX: F32.9 Major depressive disorder, single episode, unspecified (principal); F20.9 Schizophrenia, unspecified; F41.9 Anxiety disorder, unspecified; R45.851 Suicidal ideations; F15.90 Other stimulant use, unspecified, uncomplicated; Z59.0 Homelessness; Z56.0 Unemployment, unspecified
CPT/HCPCS: 36415; 80053; 80305; 80320; 81003; 85025; 99284

== ENCOUNTER 2019-02-10 02:30 | Emergency (ER) | payer MEDICAID ==
[~2019-02-10] VITALS: Ht 170.2 cm; Wt 62.3 kg
--- NOTE | 2019-02-10 05:15 | NUR ---
Received report from JESSE Gerardo.
[2019-02-10 05:30] LABS: BASOPHILS # (AUTO) 0.1 X10'3 (0-0.2); EOSINOPHILS # (AUTO) 0.2 X10'3 (0-0.9); EOSINOPHILS % (AUTO) 2.4 % (0-6); HEMATOCRIT 45.9 % (42.0-52.0); HEMOGLOBIN 15.4 g/dl (14.0-17.9); LYMPHOCYTES # (AUTO) 2.9 X10'3 (1.1-4.8); MEAN CORPUSCULAR HEMOGLOBIN 29.5 PG (27.0-31.0); MONOCYTES # (AUTO) 0.7 X10'3 (0-0.9)
[2019-02-10 05:32] LABS: BASOPHILS % (AUTO) 0.8 % (0-1); LYMPHOCYTES % (AUTO) 30.9 % (21-51); MEAN CORPUSCULAR HGB CONC 33.6 g/dL (33.0-36.5); MEAN CORPUSCULAR VOLUME 87.7 FL (78-98); NEUTROPHILS # (AUTO) 5.6 X10'3 (1.8-7.7); NEUTROPHILS % (AUTO) 58.9 % (42-75); PLATELET COUNT 197 X10'3 (140-440); RED BLOOD COUNT 5.23 X10'6 (4.70-6.10); RED CELL DISTRIBUTION WIDTH 13.8 % (11.5-14.5); WHITE BLOOD COUNT 9.5 X10'3 (4.5-11.0)
[2019-02-10 05:36] LABS: URINE AMPHETAMINE SCREEN POSITIVE (Neg); URINE BARBITUATE SCREEN NEGATIVE (Neg); URINE BENZODIAZEPINES SCREEN NEGATIVE (Neg); URINE CANNABINOID SCREEN NEGATIVE (Neg); URINE COCAINE SCREEN NEGATIVE (Neg); URINE METHADONE SCREEN NEGATIVE (Neg); URINE OPIATE SCREEN NEGATIVE (Neg); URINE PHENCYCLIDINE SCREEN NEGATIVE (Neg)
[2019-02-10 05:42] LABS: ALANINE AMINOTRANSFERASE 31 U/L (12-78); ALBUMIN/GLOBULIN RATIO 1.1 (1.1-1.5); ALKALINE PHOSPHATASE 66 IU/L (46-116); ANION GAP 5 (8-16); ASPARTATE AMINO TRANSFERASE 31 U/L (10-37); BILIRUBIN,TOTAL 0.8 MG/DL (0.1-1.0); BLOOD UREA NITROGEN 10 MG/DL (7-18); BUN/CREATININE RATIO 12.7 (5.4-32.0); CHLORIDE 108 MMOL/L (99-107); CREATININE 0.79 MG/DL (0.60-1.10); ETHANOL < 0.010 GM/DL (0.0-0.010); GLUCOSE 74 MG/DL (70-104); POTASSIUM 3.4 MMOL/L (3.5-5.1); SODIUM 145 MMOL/L (135-145); TOTAL PROTEIN 7.5 G/DL (6.4-8.2); eGFR > 90 ML/MIN
[2019-02-10 06:29] LABS: LARGE PLATELETS FEW; PLATELET ESTIMATE NORMAL
--- NOTE | 2019-02-10 06:40 | NUR ---
Pt sleeping supine. RR even and unlabored. No distress. Will continue to monitor.
[2019-02-10] MEDS ORDERED: potassium Cl 20 mEq SR tablet PO STA (06:54)
--- NOTE | 2019-02-10 07:47 | NUR ---
FAXED PACKET TO [facility]
--- NOTE | 2019-02-10 08:25 | NUR ---
Pt sleeping on his back; RR even and unlabored.
--- NOTE | 2019-02-10 10:11 | NUR ---
Pt ambulated to BR. Now back to bed laying supine. RR even and unlabored.
--- NOTE | 2019-02-10 11:29 | NUR ---
Pt continues to sleep supine. He is right in front of the nursing station. Will continue to monitor.
--- NOTE | 2019-02-10 13:26 | NUR ---
Pt remains supine wiggling his feet with a blanket covering his face. No distress or complaints.
--- NOTE | 2019-02-10 14:25 | NUR ---
Pt continues to sleep supine position. RR even and unlabored. No distress. Will continue to monitor.
--- NOTE | 2019-02-10 15:46 | NUR ---
Pt in bed supine position. No distress. Will continue to monitor.
--- NOTE | 2019-02-10 17:03 | NUR ---
Per Ranjit, Mental Health Clinician a principal planner from [facility] will be here tonight to let pt know he will be picked up and taken to [facility] Access Team in the morning. Pt does not meet criteria for a HOLD. Per Dr. Laguna pt may stay for his discharge plan tomorrow.
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
--- NOTE | 2019-02-10 20:07 | NUR ---
One to one with the patient to assess for presence of psychiatric symptoms. The patient stated he has been homeless for the past year. He denies substance abuse but the medical record reflects chronic methamphetamine abuse. He denies psychotic symptoms and none were evident during the assessment. He denies any kind of suicidal thoughts. When asked what his goal for treatment was "to figure out where I can go from here like [facility] here in [place]" He currently does not meet criteria for a 5150 hold but [facility] will be here tomorrow to miner pick and take him to [facility] for access to services.
--- NOTE | 2019-02-10 22:14 | NUR ---
The patient appears to be sleeping
--- NOTE | 2019-02-11 01:04 | NUR ---
The patient appears to be asleep
--- NOTE | 2019-02-11 03:34 | NUR ---
The patient appears to be asleep
--- NOTE | 2019-02-11 05:39 | NUR ---
The patienta appeared to have slept well during the night.
--- NOTE | 2019-02-11 06:54 | NUR ---
pt is sleeping breathing and color WNL
--- NOTE | 2019-02-11 09:17 | NUR ---
PT ATE BREAKFAST AND SLEEPING DOING WELL
--- NOTE | 2019-02-11 09:30 | NUR ---
Discharge Note [facility] here to take patient to the [facility]. Patient discharged at this time. Uncooperative with the discharge process. Yelling profanities at staff. Making bizarre hand gestures. Security called and escorted patient out to the bus stop, ambulatory, with all his personal belongings. [facility] Team will transport patient to the [facility] in a caged car for further evaluation and a care plan.
[2019-02-11 10:33] VITALS: BP 96/58
== END 2019-02-11 09:30 | disposition short-term general hospital (02) ==
LOC: ER 02:30
DX: R45.851 Suicidal ideations (principal); F41.9 Anxiety disorder, unspecified; F32.9 Major depressive disorder, single episode, unspecified; F20.9 Schizophrenia, unspecified; F15.90 Other stimulant use, unspecified, uncomplicated; Z56.0 Unemployment, unspecified; Z59.0 Homelessness
CPT/HCPCS: 36415; 80053; 80305; 80320; 85025; 99285

== ENCOUNTER 2019-02-14 20:56 | Emergency (ER) | payer MEDICAID ==
[~2019-02-14] VITALS: Ht 167.6 cm; Wt 65.9 kg
[2019-02-14 22:49] VITALS: BP 130/90
== END 2019-02-14 22:45 | disposition home or self-care (01) ==
LOC: ER 20:56
DX: R53.83 Other fatigue (principal); F41.9 Anxiety disorder, unspecified; F32.9 Major depressive disorder, single episode, unspecified; F20.9 Schizophrenia, unspecified; F15.90 Other stimulant use, unspecified, uncomplicated; Z60.2 Problems related to living alone; Z59.0 Homelessness; Z56.0 Unemployment, unspecified
CPT/HCPCS: 99281

== ENCOUNTER 2019-02-15 05:11 | Emergency (ER) | payer MEDICAID | END 2019-02-15 05:24 | disposition left against medical advice (07) | LOC: ER 05:12 | DX: R45.6 Violent behavior (principal); Z53.21 Procedure and treatment not carried out due to patient leaving prior to being seen by health care provider ==

== ENCOUNTER 2019-02-16 22:58 | Emergency (ER) | payer MEDICAID ==
[~2019-02-16] VITALS: Ht 165.1 cm; Wt 59.1 kg
[2019-02-16 23:19] VITALS: BP 133/99
== END 2019-02-16 23:42 | disposition left against medical advice (07) ==
LOC: ER 22:58
DX: Z53.21 Procedure and treatment not carried out due to patient leaving prior to being seen by health care provider (principal)

== ENCOUNTER 2019-03-20 03:08 | Emergency (ER) | payer MEDICAID ==
[~2019-03-20] VITALS: Ht 167.6 cm; Wt 75.0 kg
[2019-03-20] MEDS ORDERED: ondansetron 4mg/5ml UD cup PO ONE (03:25)
--- NOTE | 2019-03-20 03:30 | NUR ---
Pt asked about suicide plan and how he would carry out his plan, Pt responded "I don't know." Pt asked about external stressors, Pt denied any new stressors. Pt appears calm at this time.
[2019-03-20 04:42] LABS: BASOPHILS # (AUTO) 0.1 X10'3 (0-0.2); BASOPHILS % (AUTO) 0.4 % (0-1); EOSINOPHILS # (AUTO) 0.2 X10'3 (0-0.9); EOSINOPHILS % (AUTO) 1.3 % (0-6); HEMATOCRIT 43.8 % (42.0-52.0); HEMOGLOBIN 14.6 g/dl (14.0-17.9); LYMPHOCYTES % (AUTO) 14.6 % (21-51); MEAN CORPUSCULAR HEMOGLOBIN 29.7 PG (27.0-31.0); MEAN CORPUSCULAR HGB CONC 33.4 g/dL (33.0-36.5); MONOCYTES # (AUTO) 0.9 X10'3 (0-0.9); MONOCYTES % (AUTO) 6.2 % (2-12); NEUTROPHILS # (AUTO) 10.8 X10'3 (1.8-7.7); NEUTROPHILS % (AUTO) 77.5 % (42-75); PLATELET COUNT 240 X10'3 (140-440); RED BLOOD COUNT 4.92 X10'6 (4.70-6.10); RED CELL DISTRIBUTION WIDTH 13.9 % (11.5-14.5); WHITE BLOOD COUNT 13.9 X10'3 (4.5-11.0)
--- NOTE | 2019-03-20 04:52 | NUR ---
Pt provided sandwhich and moved to ED 9.
[2019-03-20] MEDS ORDERED: diphenhydrAMINE 25mg capsule PO ONE (05:40)
[2019-03-20] MEDS ORDERED: LORazepam 1 MG tablet PO ONE (05:40)
[2019-03-20] MEDS ORDERED: OLANZapine 5mg rapidly disint. tablet PO ONE ×2 (05:40→06:45)
[2019-03-20 05:45] LABS: URINE AMPHETAMINE SCREEN POSITIVE (Neg); URINE BARBITUATE SCREEN NEGATIVE (Neg); URINE BENZODIAZEPINES SCREEN NEGATIVE (Neg); URINE CANNABINOID SCREEN NEGATIVE (Neg); URINE COCAINE SCREEN NEGATIVE (Neg); URINE METHADONE SCREEN NEGATIVE (Neg); URINE OPIATE SCREEN NEGATIVE (Neg); URINE PHENCYCLIDINE SCREEN NEGATIVE (Neg)
[2019-03-20 05:47] LABS: ALANINE AMINOTRANSFERASE 48 U/L (12-78); ALBUMIN 3.6 G/DL (3.4-5.0); ALBUMIN/GLOBULIN RATIO 0.8 (1.1-1.5); ALKALINE PHOSPHATASE 85 IU/L (46-116); ANION GAP 5 (8-16); ASPARTATE AMINO TRANSFERASE 40 U/L (10-37); BILIRUBIN,TOTAL 0.3 MG/DL (0.1-1.0); BLOOD UREA NITROGEN 14 MG/DL (7-18); BUN/CREATININE RATIO 21.2 (5.4-32.0); CALCIUM 9.2 MG/DL (8.5-10.1); CHLORIDE 101 MMOL/L (99-107); CREATININE 0.66 MG/DL (0.60-1.10); ETHANOL < 0.010 GM/DL (0.0-0.010); GLUCOSE 84 MG/DL (70-104); POTASSIUM 3.7 MMOL/L (3.5-5.1); SODIUM 138 MMOL/L (135-145); TOTAL CARBON DIOXIDE 32.1 MMOL/L (24-32); TOTAL PROTEIN 7.9 G/DL (6.4-8.2); eGFR > 90 ML/MIN
--- NOTE | 2019-03-20 07:32 | NUR ---
PT UP TO BR. MEDICATED WITH ZYPREXIA. PT RESTING ON BACK EYES CLOSED RR EQUAL AND ULABORED
--- NOTE | 2019-03-20 08:52 | NUR ---
PT SITTING UP IN BED EATING BREAKFAST NO NEEDS AT THIS TIME
--- NOTE | 2019-03-20 09:30 | NUR ---
PATIENT APPEARS TO BE SLEEPING ON RIGHT SIDE. RR EVEN AND UNLABORED, NAD.
--- NOTE | 2019-03-20 11:32 | NUR ---
PATIENT DENIES ANY ACTIVE SI OR HI AT THIS TIME. NO PLAN. "JUST FEELS TIRED" PATIENT IS CALM AND COOPERATIVE
--- NOTE | 2019-03-20 12:55 | NUR ---
PHONE REPORT TO JESSE RUBALCAVA. PATIENT TRANSFERED TO ROOM 23 IN ER OVERFLOW.
--- NOTE | 2019-03-20 13:01 | NUR ---
RECEIVED REPORT FROM AMINATA MOLINA, PT AMB WITH STEADY GAIT TO OVERFLOW, REPORT TO CARLEY MOLINA.
--- NOTE | 2019-03-20 15:00 | NUR ---
Pt sleeping on back.
--- NOTE | 2019-03-20 17:00 | NUR ---
Snacks given to pt. He remains calm and cooperative.
--- NOTE | 2019-03-20 18:28 | NUR ---
Received report and assumed care of patient from JESSE Claros. The patient is resting on his left side.
--- NOTE | 2019-03-20 20:00 | NUR ---
Patient is sleeping on his right side. Resp. unlabored. No s/s of distress.
[2019-03-20] MEDS ORDERED: QUEtiapine 25mg tablet PO SCH (21:00)
--- NOTE | 2019-03-20 22:05 | NUR ---
The patient is sleeping in supine position. Resp. unlabored. No s/s of distress.
--- NOTE | 2019-03-21 00:26 | NUR ---
The patient is asleep on his right side. No distress noted.
--- NOTE | 2019-03-21 01:09 | NUR ---
The patient is asleep on his left side. Resp unlabored. No s/s of distress noted.
--- NOTE | 2019-03-21 02:21 | NUR ---
Yellow object found on floor beside pt after pt had been to the bathroom. CN informed. Pt had object secreted on his person.
--- NOTE | 2019-03-21 03:11 | NUR ---
The patient is asleep on his left side. Resp unlabored. No s/s of distress noted.
--- NOTE | 2019-03-21 05:09 | NUR ---
The patient is asleep on his right side.
[2019-03-21 05:30] VITALS: BP 108/70
--- NOTE | 2019-03-21 06:22 | NUR ---
Pt. sleeping on his left side at this time, rr even and unlabored.
--- NOTE | 2019-03-21 08:22 | NUR ---
Pt up to the bathroom and finishing breakfast
--- NOTE | 2019-03-21 09:27 | NUR ---
Pt reports anxiety and wants to leave as soon as [facility] can see him.
--- NOTE | 2019-03-21 10:02 | NUR ---
Ayesha from [facility] at bedside to evaluate pt.
== END 2019-03-21 10:41 | disposition home or self-care (01) ==
LOC: ER 03:09
DX: F32.9 Major depressive disorder, single episode, unspecified (principal); F15.10 Other stimulant abuse, uncomplicated; F41.9 Anxiety disorder, unspecified; F20.9 Schizophrenia, unspecified; Z59.0 Homelessness; Z56.0 Unemployment, unspecified; Z60.2 Problems related to living alone
CPT/HCPCS: 36415; 80053; 80305; 80320; 85025; 99284; Q0163

== ENCOUNTER 2019-03-24 22:30 | Emergency (ER) | payer MEDICAID ==
[~2019-03-24] VITALS: Ht 170.2 cm; Wt 77.0 kg
--- NOTE | 2019-03-24 22:52 | NUR ---
Placed in room 23. Patient sitting up in bed, in no apparent distress.
[2019-03-24 23:23] LABS: URINE AMPHETAMINE SCREEN POSITIVE (Neg); URINE BARBITUATE SCREEN NEGATIVE (Neg); URINE BENZODIAZEPINES SCREEN NEGATIVE (Neg); URINE CANNABINOID SCREEN NEGATIVE (Neg); URINE COCAINE SCREEN NEGATIVE (Neg); URINE METHADONE SCREEN NEGATIVE (Neg); URINE OPIATE SCREEN NEGATIVE (Neg); URINE PHENCYCLIDINE SCREEN NEGATIVE (Neg)
[2019-03-24 23:35] LABS: BASOPHILS # (AUTO) 0.1 X10'3 (0-0.2); EOSINOPHILS # (AUTO) 0.3 X10'3 (0-0.9); EOSINOPHILS % (AUTO) 2.8 % (0-6); HEMATOCRIT 43.6 % (42.0-52.0); HEMOGLOBIN 14.7 g/dl (14.0-17.9); LYMPHOCYTES # (AUTO) 3.2 X10'3 (1.1-4.8); LYMPHOCYTES % (AUTO) 26.4 % (21-51); MEAN CORPUSCULAR HEMOGLOBIN 29.5 PG (27.0-31.0); MEAN CORPUSCULAR HGB CONC 33.7 g/dL (33.0-36.5); MEAN CORPUSCULAR VOLUME 87.4 FL (78-98); MEAN PLATELET VOLUME 10.8 FL (7.4-10.4); MONOCYTES # (AUTO) 0.8 X10'3 (0-0.9); MONOCYTES % (AUTO) 6.3 % (2-12); NEUTROPHILS # (AUTO) 7.7 X10'3 (1.8-7.7); NEUTROPHILS % (AUTO) 63.5 % (42-75); PLATELET COUNT 252 X10'3 (140-440); RED BLOOD COUNT 4.99 X10'6 (4.70-6.10); RED CELL DISTRIBUTION WIDTH 13.2 % (11.5-14.5); WHITE BLOOD COUNT 12.1 X10'3 (4.5-11.0)
[2019-03-24 23:38] LABS: ALANINE AMINOTRANSFERASE 36 U/L (12-78); ALBUMIN 3.5 G/DL (3.4-5.0); ALBUMIN/GLOBULIN RATIO 0.8 (1.1-1.5); ALKALINE PHOSPHATASE 85 IU/L (46-116); ANION GAP 9 (8-16); ASPARTATE AMINO TRANSFERASE 21 U/L (10-37); BILIRUBIN,TOTAL 0.4 MG/DL (0.1-1.0); BLOOD UREA NITROGEN 15 MG/DL (7-18); BUN/CREATININE RATIO 19.2 (5.4-32.0); CALCIUM 8.7 MG/DL (8.5-10.1); CHLORIDE 103 MMOL/L (99-107); CREATININE 0.78 MG/DL (0.60-1.10); GLUCOSE 118 MG/DL (70-104); POTASSIUM 3.8 MMOL/L (3.5-5.1); SODIUM 140 MMOL/L (135-145); TOTAL PROTEIN 7.9 G/DL (6.4-8.2); eGFR > 90 ML/MIN
[2019-03-24 23:41] LABS: ETHANOL < 0.010 GM/DL (0.0-0.010)
[2019-03-24 23:53] LABS: GIANT PLATELET FEW; LARGE PLATELETS FEW; PLATELET ESTIMATE NORMAL
--- NOTE | 2019-03-25 00:55 | NUR ---
Patient agitated and shouting for dinner, although dinner was given to him 2 hours ago.
--- NOTE | 2019-03-25 01:04 | NUR ---
Now resting comfortably.
--- NOTE | 2019-03-25 05:49 | NUR ---
pt packet faxed to [facility].
--- NOTE | 2019-03-25 05:50 | NUR ---
While doing vitals concepcion inappropriately touched my arm but responded to redirection.
[2019-03-25 06:01] VITALS: BP 114/62
--- NOTE | 2019-03-25 06:30 | NUR ---
Patient sleeping on left side. No distress observed. Continue to monitor.
--- NOTE | 2019-03-25 07:26 | NUR ---
Patient reclining in bed awake. No distress observed. Continue to monitor.
--- NOTE | 2019-03-25 09:20 | NUR ---
Patient sleeping on left side. No distress observed. Continue to monitor.
--- NOTE | 2019-03-25 11:01 | NUR ---
JORDYN Church evaluating patient. Continue to monitor.
== END 2019-03-25 11:30 | disposition home or self-care (01) ==
LOC: ER 22:30
DX: R45.851 Suicidal ideations (principal); R45.850 Homicidal ideations; F41.9 Anxiety disorder, unspecified; F32.9 Major depressive disorder, single episode, unspecified; F20.9 Schizophrenia, unspecified; F17.200 Nicotine dependence, unspecified, uncomplicated; F12.90 Cannabis use, unspecified, uncomplicated; F15.90 Other stimulant use, unspecified, uncomplicated; Z60.2 Problems related to living alone; Z59.0 Homelessness; Z56.0 Unemployment, unspecified
CPT/HCPCS: 36415; 80053; 80305; 80320; 85025; 99284

== ENCOUNTER 2019-05-22 04:35 | Emergency (ER) | payer MEDICAID ==
[~2019-05-22] VITALS: Ht 165.1 cm; Wt 68.2 kg
[2019-05-22 04:38] VITALS: BP 145/90
== END 2019-05-22 04:42 | disposition left against medical advice (07) ==
LOC: ER 04:36
DX: Z00.8 Encounter for other general examination (principal); Z53.21 Procedure and treatment not carried out due to patient leaving prior to being seen by health care provider

== ENCOUNTER → 2019-05-24 | Emergency (ER) | payer MEDICAID ==
[~2019-05-24] VITALS: Ht 180.3 cm; Wt 65.0 kg
[2019-05-24 00:47] VITALS: BP 145/96
== END | disposition home or self-care (01) ==
LOC: ER 00:44
DX: R06.00 Dyspnea, unspecified (principal); F12.90 Cannabis use, unspecified, uncomplicated; F15.90 Other stimulant use, unspecified, uncomplicated; F41.9 Anxiety disorder, unspecified; F32.9 Major depressive disorder, single episode, unspecified; F20.9 Schizophrenia, unspecified; Z59.0 Homelessness; Z56.0 Unemployment, unspecified
CPT/HCPCS: 99281

== ENCOUNTER 2019-07-16 00:47 | Emergency (ER) | payer MEDICAID ==
[~2019-07-16] VITALS: Ht 165.1 cm; Wt 72.7 kg
[2019-07-16 01:00] VITALS: BP 131/89
--- NOTE | 2019-07-16 01:30 | NUR ---
DR. LEACH AT BEDSIDE
--- NOTE | 2019-07-16 01:49 | NUR ---
DR. LEACH VERBALIZED THIS PATIENT WILL NOT NEED A MENTAL HEALTH EVALUATION AND CAN BE DISCHARGED
== END 2019-07-16 01:35 | disposition home or self-care (01) ==
LOC: ER 00:48
DX: Z76.5 Malingerer [conscious simulation] (principal); F15.10 Other stimulant abuse, uncomplicated; F41.9 Anxiety disorder, unspecified; F32.9 Major depressive disorder, single episode, unspecified; F20.9 Schizophrenia, unspecified; F12.90 Cannabis use, unspecified, uncomplicated; Z59.0 Homelessness; Z60.2 Problems related to living alone; Z56.0 Unemployment, unspecified
CPT/HCPCS: 99281

== ENCOUNTER 2019-08-04 16:10 | Emergency (ER) | payer MEDICAID ==
[~2019-08-04] VITALS: Ht 170.2 cm; Wt 80.0 kg
[2019-08-04] MEDS ORDERED: LORazepam 1 MG tablet PO ONE (17:00)
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
--- NOTE | 2019-08-04 17:26 | NUR ---
Pt. given Ativan 1mg po now dose for anxiety.
[2019-08-04 17:40] LABS: BASOPHILS # (AUTO) 0.1 X10'3 (0-0.2); EOSINOPHILS # (AUTO) 0.3 X10'3 (0-0.9); EOSINOPHILS % (AUTO) 3.5 % (0-6); LYMPHOCYTES # (AUTO) 1.9 X10'3 (1.1-4.8); NEUTROPHILS # (AUTO) 4.6 X10'3 (1.8-7.7); RED CELL DISTRIBUTION WIDTH 15.1 % (11.5-14.5)
[2019-08-04 17:42] LABS: BASOPHILS % (AUTO) 0.8 % (0-1); HEMATOCRIT 46.5 % (42.0-52.0); HEMOGLOBIN 15.3 g/dl (14.0-17.9); LYMPHOCYTES % (AUTO) 26.1 % (21-51); MEAN CORPUSCULAR HGB CONC 32.8 g/dL (33.0-36.5); MEAN CORPUSCULAR VOLUME 85.2 FL (78-98); MEAN PLATELET VOLUME 11.1 FL (7.4-10.4); MONOCYTES # (AUTO) 0.5 X10'3 (0-0.9); MONOCYTES % (AUTO) 7.3 % (2-12); NEUTROPHILS % (AUTO) 62.3 % (42-75); PLATELET COUNT 191 X10'3 (140-440); RED BLOOD COUNT 5.46 X10'6 (4.70-6.10); WHITE BLOOD COUNT 7.3 X10'3 (4.5-11.0)
[2019-08-04 17:47] LABS: ALANINE AMINOTRANSFERASE 24 U/L (12-78); ALBUMIN 3.4 G/DL (3.4-5.0); ALKALINE PHOSPHATASE 71 IU/L (46-116); ANION GAP 4 (8-16); ASPARTATE AMINO TRANSFERASE 19 U/L (10-37); BILIRUBIN,TOTAL 0.4 MG/DL (0.1-1.0); BLOOD UREA NITROGEN 6 MG/DL (7-18); BUN/CREATININE RATIO 7.8 (5.4-32.0); CALCIUM 7.9 MG/DL (8.5-10.1); CHLORIDE 105 MMOL/L (99-107); CREATININE 0.77 MG/DL (0.60-1.10); ETHANOL < 0.010 GM/DL (0.0-0.010); GLUCOSE 94 MG/DL (70-104); POTASSIUM 3.7 MMOL/L (3.5-5.1); SODIUM 142 MMOL/L (135-145); TOTAL CARBON DIOXIDE 33.3 MMOL/L (24-32); TOTAL PROTEIN 6.9 G/DL (6.4-8.2); eGFR > 90 ML/MIN
[2019-08-04 17:47] LABS: CLARITY,URINE CLEAR (Clear); COLOR,URINE YELLOW (Yellow); GLUCOSE, URINE NEGATIVE (Neg); KETONES,URINE NEGATIVE (Neg); LEUKOCYTE ESTERASE ,URINE NEGATIVE (Neg); NITRITES, URINE NEGATIVE (Neg); OCCULT BLOOD,URINE NEGATIVE (Neg); PH,URINE 6.5 (4.8-8.0); PROTEIN,URINE NEGATIVE (Neg); UROBILINOGEN,URINE 0.2 E.U/dL (0.2-1.0)
[2019-08-04 17:50] LABS: UA COLLECTION TYPE CLN CATCH MIDSTREAM
[2019-08-04 17:51] LABS: URINE AMPHETAMINE SCREEN NEGATIVE (Neg); URINE BARBITUATE SCREEN NEGATIVE (Neg); URINE BENZODIAZEPINES SCREEN NEGATIVE (Neg); URINE CANNABINOID SCREEN NEGATIVE (Neg); URINE COCAINE SCREEN NEGATIVE (Neg); URINE METHADONE SCREEN NEGATIVE (Neg); URINE OPIATE SCREEN NEGATIVE (Neg); URINE PHENCYCLIDINE SCREEN NEGATIVE (Neg)
[2019-08-04 18:18] LABS: GIANT PLATELET FEW; LARGE PLATELETS MODERATE; PLATELET ESTIMATE NORMAL
--- NOTE | 2019-08-04 18:34 | NUR ---
packet to [facility]
--- NOTE | 2019-08-04 18:49 | NUR ---
The patient is resting on his bed and he is uncooperative with any kind of nuring intervention. He did however eat a dinner tray that was provided.
--- NOTE | 2019-08-04 19:38 | NUR ---
[facility] is here to assess the patient.
--- NOTE | 2019-08-04 21:36 | NUR ---
The patient is resting on his bed
--- NOTE | 2019-08-04 22:34 | NUR ---
The patient appears to be asleep on his bed.
--- NOTE | 2019-08-05 00:11 | NUR ---
The patient appears to be sleeping
--- NOTE | 2019-08-05 03:53 | NUR ---
The patient is resting on his bed but awake
--- NOTE | 2019-08-05 06:43 | NUR ---
Received Pt sleeping in bed w/o distress at change of shift.
--- NOTE | 2019-08-05 09:44 | NUR ---
Pt awoke for breakfast and ate all of his tray, and returned to sleeping. Pt requested something for anxiety. He otherwise did not want to talk with this RN.
[2019-08-05] MEDS ORDERED: LORazepam 1 MG tablet PO ONE (11:55)
--- NOTE | 2019-08-05 13:26 | NUR ---
Pt currently in bed resting and sleeping after eating lunch. He received Ativan 1mg at 1201 after c/o anxiety. Pt remains resistant to care other than food and antianxiety medication.
--- NOTE | 2019-08-05 17:18 | NUR ---
Pt awake and went to bathroom. He is hungry and was told when dinner will be coming. He also wanted to know when he can get anxiety meds next. Per [facility] office, Pt has been accepted at [facility] [place] and a bed will be available tomorrow.
--- NOTE | 2019-08-05 19:08 | NUR ---
Received report fromRuiz RN. patient is up in his bed and has complaints of Anxiety and is requesting anxiety medication. Patient does appear anxious as he is unable to sit still in his bed. He ate his dinner tray without issue and is currently attempting to lay down but continues to fidget while laying in his bed. Will continue to monitor.
--- NOTE | 2019-08-05 20:30 | NUR ---
Patient laying in his bed, calmly. He requests an extra blanket which is rpovided. Brenda falls alseep shortly after ebing given blanket. Will continue to monitor.
--- NOTE | 2019-08-05 22:30 | NUR ---
Patient resting in bed with eyes closed, no signs of distress noted. Will continue to monitor.
[2019-08-06] MEDS ORDERED: hydrOXYzine 25 MG tablet PO ONE (00:20)
--- NOTE | 2019-08-06 00:30 | NUR ---
Patient got up and requested Anixety medication. Order obtained for Atarax 50mg which patient took without difficulty. Will continue to monitor patient.
--- NOTE | 2019-08-06 03:30 | NUR ---
Patient in bed resting with eyes closed, no signs of distress noted. Will continue to monitor.
[2019-08-06 06:01] VITALS: BP 127/85
--- NOTE | 2019-08-06 06:04 | NUR ---
Patient in bed resting with eyes closed, no signs of distress noted.
--- NOTE | 2019-08-06 07:00 | NUR ---
Pt received sleeping in bed without signs of distress and no complaints. Pt continues to rest peacefully.
--- NOTE | 2019-08-06 09:00 | NUR ---
Pt up for breakfast. After breakfast, pt returned to sleep. Pt has no requests. Pt cooperative.
[2019-08-06] MEDS ORDERED: hydrOXYzine 25 MG tablet PO PRN (10:45)
[2019-08-06] MEDS ORDERED: risperiDONE 2mg tablet PO ONE (10:45)
--- NOTE | 2019-08-06 11:00 | NUR ---
Pt up requesting to check himself out. Pt informed that he had been accepted at [facility] and that he would be leaving around 1:15. Pt then asked for some food and medication for anxiety. Dr. Bean notified and ordered atarax PRN and risperdal 2mg; both of which were given. Pt remains cooperative.
--- NOTE | 2019-08-06 13:00 | NUR ---
Pt up for lunch and dressed ready for pickup for transfer to [facility].
[2019-08-06] MEDS ORDERED: risperiDONE 2mg tablet PO SCH (20:00)
== END 2019-08-06 13:47 ==
LOC: ER 16:11
DX: R45.851 Suicidal ideations (principal); F20.0 Paranoid schizophrenia; F41.9 Anxiety disorder, unspecified; F12.90 Cannabis use, unspecified, uncomplicated; F15.90 Other stimulant use, unspecified, uncomplicated; Z60.2 Problems related to living alone; Z59.0 Homelessness; Z56.0 Unemployment, unspecified
CPT/HCPCS: 36415; 80053; 80305; 80320; 81003; 84443; 85025; 99285; Z7610

== ENCOUNTER 2019-08-18 08:41 | Emergency (ER) | payer MEDICAID ==
[~2019-08-18] VITALS: Ht 167.6 cm; Wt 75.0 kg
[2019-08-18 08:54] VITALS: BP 131/71
[2019-08-18] MEDS ORDERED: LORazepam 1 MG tablet PO ONE (09:30)
[2019-08-18] MEDS ORDERED: OLANZapine 2.5MG tablet PO SCH (09:35)
[2019-08-18] MEDS ORDERED: OLANZAPINE 5 MG TABLET PO SCH ×2 (09:36→09:37)
[2019-08-18 10:12] LABS: URINE AMPHETAMINE SCREEN POSITIVE (Neg); URINE BARBITUATE SCREEN NEGATIVE (Neg); URINE BENZODIAZEPINES SCREEN NEGATIVE (Neg); URINE CANNABINOID SCREEN NEGATIVE (Neg); URINE COCAINE SCREEN NEGATIVE (Neg); URINE METHADONE SCREEN NEGATIVE (Neg); URINE OPIATE SCREEN NEGATIVE (Neg); URINE PHENCYCLIDINE SCREEN NEGATIVE (Neg)
[2019-08-18 10:12] LABS: BASOPHILS # (AUTO) 0.1 X10'3 (0-0.2); HEMOGLOBIN 15.2 g/dl (14.0-17.9); WHITE BLOOD COUNT 7.9 X10'3 (4.5-11.0)
[2019-08-18 10:14] LABS: BASOPHILS % (AUTO) 0.8 % (0-1); EOSINOPHILS # (AUTO) 0.3 X10'3 (0-0.9); EOSINOPHILS % (AUTO) 3.4 % (0-6); HEMATOCRIT 46.5 % (42.0-52.0); LYMPHOCYTES % (AUTO) 25.2 % (21-51); MEAN CORPUSCULAR HEMOGLOBIN 28.4 PG (27.0-31.0); MEAN CORPUSCULAR HGB CONC 32.7 g/dL (33.0-36.5); MEAN CORPUSCULAR VOLUME 86.8 FL (78-98); MEAN PLATELET VOLUME 10.6 FL (7.4-10.4); MONOCYTES # (AUTO) 0.5 X10'3 (0-0.9); MONOCYTES % (AUTO) 6.6 % (2-12); PLATELET COUNT 179 X10'3 (140-440); RED BLOOD COUNT 5.35 X10'6 (4.70-6.10); RED CELL DISTRIBUTION WIDTH 15.3 % (11.5-14.5)
[2019-08-18 10:27] LABS: ALBUMIN 3.5 G/DL (3.4-5.0); ALKALINE PHOSPHATASE 70 IU/L (46-116); ANION GAP 3 (8-16); ASPARTATE AMINO TRANSFERASE 21 U/L (10-37); BLOOD UREA NITROGEN 8 MG/DL (7-18); BUN/CREATININE RATIO 9.6 (5.4-32.0); CALCIUM 8.4 MG/DL (8.5-10.1); CHLORIDE 105 MMOL/L (99-107); CREATININE 0.83 MG/DL (0.60-1.10); ETHANOL < 0.010 GM/DL (0.0-0.010); GLUCOSE 71 MG/DL (70-104); POTASSIUM 3.4 MMOL/L (3.5-5.1); SODIUM 142 MMOL/L (135-145); TOTAL CARBON DIOXIDE 34.1 MMOL/L (24-32); TOTAL PROTEIN 7.1 G/DL (6.4-8.2); eGFR > 90 ML/MIN
[2019-08-18 10:38] LABS: LARGE PLATELETS FEW; PLATELET ESTIMATE NORMAL
[2019-08-18 10:40] LABS: ALANINE AMINOTRANSFERASE 20 U/L (12-78)
[2019-08-18 10:46] LABS: ACETAMINOPHEN < 2.0 UG/ML (10-30)
== END 2019-08-19 02:56 ==
LOC: ER 08:42
DX: R45.851 Suicidal ideations (principal); R45.850 Homicidal ideations; F32.9 Major depressive disorder, single episode, unspecified; F20.9 Schizophrenia, unspecified; F12.90 Cannabis use, unspecified, uncomplicated; F15.90 Other stimulant use, unspecified, uncomplicated; Z60.2 Problems related to living alone; Z59.0 Homelessness; Z56.0 Unemployment, unspecified
CPT/HCPCS: 36415; 80053; 80305; 80320; 80329; 85025; 99285

== ENCOUNTER 2019-08-19 02:56 | Emergency (ER) | payer MEDICAID | END 2019-08-19 03:33 | disposition home or self-care (01) | LOC: ER 02:56 | DX: Z76.5 Malingerer [conscious simulation] (principal); F41.9 Anxiety disorder, unspecified; F32.9 Major depressive disorder, single episode, unspecified; F20.9 Schizophrenia, unspecified; F12.90 Cannabis use, unspecified, uncomplicated; F15.90 Other stimulant use, unspecified, uncomplicated; Z59.0 Homelessness; Z60.2 Problems related to living alone; Z56.0 Unemployment, unspecified | CPT/HCPCS: 99281 ==

== ENCOUNTER 2019-08-20 10:27 | Emergency (ER) | payer MEDICAID ==
[~2019-08-20] VITALS: Ht 167.6 cm; Wt 68.2 kg
[2019-08-20 10:30] VITALS: BP 140/80
--- NOTE | 2019-08-20 10:51 | NUR ---
Chelsy ARAUJO out in ambulance bay to assess patient. Chelsy ARAUJO talking in a calm manner and asking appropriate questions regarding reason for coming into ED today. Chelsy ARAUJO also stated to patient that he is unable to pick what facility he gets to go to. Patient then stood up and started yelling at [facility] stating, "Where am I supposed to go then?" I stated to patient that if he is going to yell at any of the staff that he needs to just leave. With security standing by patient was excorted off the the hospital property.
== END 2019-08-20 11:11 | disposition home or self-care (01) ==
LOC: ER 10:27
DX: R45.4 Irritability and anger (principal); F41.9 Anxiety disorder, unspecified; F32.9 Major depressive disorder, single episode, unspecified; F20.9 Schizophrenia, unspecified; F12.90 Cannabis use, unspecified, uncomplicated; F15.90 Other stimulant use, unspecified, uncomplicated; Z60.2 Problems related to living alone; Z59.0 Homelessness; Z56.0 Unemployment, unspecified
CPT/HCPCS: 99283

== ENCOUNTER 2019-09-08 19:03 | Emergency (ER) | payer MEDICAID | END 2019-09-08 19:18 | disposition left against medical advice (07) | LOC: ER 19:04 | DX: S00.86XA Insect bite (nonvenomous) of other part of head, initial encounter (principal); F41.9 Anxiety disorder, unspecified; F32.9 Major depressive disorder, single episode, unspecified; F20.9 Schizophrenia, unspecified; F12.90 Cannabis use, unspecified, uncomplicated; F15.90 Other stimulant use, unspecified, uncomplicated; Z56.0 Unemployment, unspecified; Z00.8 Encounter for other general examination; Z60.2 Problems related to living alone; Z59.0 Homelessness | CPT/HCPCS: 99281; 99283 ==

== ENCOUNTER 2019-09-26 23:18 | Emergency (ER) | payer MEDICAID ==
[~2019-09-26] VITALS: Ht 172.7 cm; Wt 70.5 kg
[2019-09-27] MEDS ORDERED: ibuprofen tablet 400 MG TABLET PO ONE (00:10)
[2019-09-27 00:20] VITALS: BP 138/111
== END 2019-09-27 00:22 | disposition home or self-care (01) ==
LOC: ER 23:19
DX: M54.2 Cervicalgia (principal); F41.9 Anxiety disorder, unspecified; F32.9 Major depressive disorder, single episode, unspecified; F20.9 Schizophrenia, unspecified; F12.90 Cannabis use, unspecified, uncomplicated; F15.90 Other stimulant use, unspecified, uncomplicated; Z60.2 Problems related to living alone; Z56.0 Unemployment, unspecified; Z59.0 Homelessness
CPT/HCPCS: 99281

== ENCOUNTER 2019-10-15 20:59 | Emergency (ER) | payer MEDICAID ==
[~2019-10-15] VITALS: Ht 167.6 cm; Wt 73.6 kg
[2019-10-15 21:07] VITALS: BP 145/107
--- NOTE | 2019-10-15 22:01 | NUR ---
Upon assessment pt demanding pain meds. He states he allergic to ibuprophen and tylenol.
[2019-10-15] MEDS ORDERED: ketorolac tromethamine 15mg/ml inj. IM ONE (22:20)
== END 2019-10-15 22:50 | disposition home or self-care (01) ==
LOC: ER 21:00
DX: M25.511 Pain in right shoulder (principal); R51 Headache; M54.2 Cervicalgia; F41.9 Anxiety disorder, unspecified; F20.9 Schizophrenia, unspecified; F32.9 Major depressive disorder, single episode, unspecified; F12.90 Cannabis use, unspecified, uncomplicated; F15.90 Other stimulant use, unspecified, uncomplicated; Z60.2 Problems related to living alone; Z59.0 Homelessness; Z56.0 Unemployment, unspecified; W18.39XA Other fall on same level, initial encounter; Y93.89 Activity, other specified; Y92.89 Other specified places as the place of occurrence of the external cause; Y99.8 Other external cause status
CPT/HCPCS: 96372; 99283; J1885

== ENCOUNTER 2019-12-11 18:03 | Emergency (ER) | payer MEDICAID ==
[~2019-12-11] VITALS: Ht 170.2 cm; Wt 70.5 kg
[2019-12-11 18:05] VITALS: BP 134/93
[2019-12-11] MEDS ORDERED: ibuprofen tablet 400 MG TABLET PO ONE (18:30)
== END 2019-12-11 18:36 | disposition home or self-care (01) ==
LOC: ER 18:03
DX: T63.301A Toxic effect of unspecified spider venom, accidental (unintentional), initial encounter (principal); F41.9 Anxiety disorder, unspecified; F32.9 Major depressive disorder, single episode, unspecified; F20.9 Schizophrenia, unspecified; F12.90 Cannabis use, unspecified, uncomplicated; F15.90 Other stimulant use, unspecified, uncomplicated; Z60.2 Problems related to living alone; Z56.0 Unemployment, unspecified; Z59.0 Homelessness; Y92.89 Other specified places as the place of occurrence of the external cause
CPT/HCPCS: 99283

== ENCOUNTER 2019-12-16 12:19 | Emergency (ER) | payer MEDICAID ==
[~2019-12-16] VITALS: Ht 172.7 cm; Wt 50.0 kg
[2019-12-16 12:33] VITALS: BP 138/106
[2019-12-16] MEDS ORDERED: ibuprofen tablet 400 MG TABLET PO ONE (14:10)
== END 2019-12-16 14:41 | disposition home or self-care (01) ==
LOC: ER 12:20
DX: M54.2 Cervicalgia (principal); F41.9 Anxiety disorder, unspecified; F32.9 Major depressive disorder, single episode, unspecified; F20.9 Schizophrenia, unspecified; F12.90 Cannabis use, unspecified, uncomplicated; F15.90 Other stimulant use, unspecified, uncomplicated; Z59.0 Homelessness; Z56.0 Unemployment, unspecified; Z60.2 Problems related to living alone
CPT/HCPCS: 99282

== ENCOUNTER 2019-12-21 23:59 | Emergency (ER) | payer MEDICAID | END 2019-12-22 00:11 | disposition left against medical advice (07) | LOC: ER 23:59 | DX: R52 Pain, unspecified (principal); Z53.21 Procedure and treatment not carried out due to patient leaving prior to being seen by health care provider ==

== ENCOUNTER 2020-01-19 02:54 | Emergency (ER) | payer MEDICAID ==
[~2020-01-19] VITALS: Ht 170.2 cm; Wt 80.0 kg
[2020-01-19 03:02] VITALS: BP 140/85
== END 2020-01-19 04:06 | disposition left against medical advice (07) ==
LOC: ER 02:55
DX: R07.81 Pleurodynia (principal); Z53.21 Procedure and treatment not carried out due to patient leaving prior to being seen by health care provider

== ENCOUNTER 2020-02-10 04:44 | Emergency (ER) | payer MEDICAID ==
[~2020-02-10] VITALS: Ht 167.6 cm; Wt 75.0 kg
[2020-02-10 04:58] VITALS: BP 165/104
--- NOTE | 2020-02-10 05:12 | NUR ---
Pt ambulatory to restroom.
--- NOTE | 2020-02-10 05:31 | NUR ---
Pt was in restroom for over ten minutes. Security called to restroom where patient was standing in the corner. Pt escorted back to room 7.
[2020-02-10] MEDS ORDERED: naproxen 500mg tablet PO ONE (05:50)
== END 2020-02-10 05:59 | disposition home or self-care (01) ==
LOC: ER 04:47
DX: M25.512 Pain in left shoulder (principal); F41.9 Anxiety disorder, unspecified; F20.9 Schizophrenia, unspecified; F32.9 Major depressive disorder, single episode, unspecified; F12.90 Cannabis use, unspecified, uncomplicated; F15.90 Other stimulant use, unspecified, uncomplicated; Z60.2 Problems related to living alone; Z59.0 Homelessness; Z56.0 Unemployment, unspecified
CPT/HCPCS: 99282

== ENCOUNTER 2020-02-12 03:44 | Emergency (ER) | payer MEDICAID ==
[~2020-02-12] VITALS: Ht 170.2 cm; Wt 75.0 kg
[2020-02-12 04:18] VITALS: BP 141/101
== END 2020-02-12 04:21 | disposition home or self-care (01) ==
LOC: ER 03:45
DX: S40.012A Contusion of left shoulder, initial encounter (principal); F41.9 Anxiety disorder, unspecified; F32.9 Major depressive disorder, single episode, unspecified; F20.9 Schizophrenia, unspecified; F12.90 Cannabis use, unspecified, uncomplicated; F15.90 Other stimulant use, unspecified, uncomplicated; Z60.2 Problems related to living alone; Z59.0 Homelessness; Z56.0 Unemployment, unspecified; W18.39XA Other fall on same level, initial encounter; Y93.89 Activity, other specified; Y92.89 Other specified places as the place of occurrence of the external cause; Y99.8 Other external cause status
CPT/HCPCS: 73030; 99283

== ENCOUNTER 2020-02-15 03:26 | Emergency (ER) | payer MEDICAID ==
[~2020-02-15] VITALS: Ht 170.2 cm; Wt 175.0 kg
[2020-02-15 03:32] VITALS: BP 139/97
[2020-02-15] MEDS ORDERED: acetaminophen 325mg tablet PO ONE (03:50)
== END 2020-02-15 03:57 | disposition home or self-care (01) ==
LOC: ER 03:28
DX: M25.512 Pain in left shoulder (principal); F41.9 Anxiety disorder, unspecified; F32.9 Major depressive disorder, single episode, unspecified; F20.9 Schizophrenia, unspecified; F12.90 Cannabis use, unspecified, uncomplicated; F15.90 Other stimulant use, unspecified, uncomplicated; Z60.2 Problems related to living alone; Z59.0 Homelessness; Z56.0 Unemployment, unspecified
CPT/HCPCS: 99282

== ENCOUNTER 2020-02-20 18:14 | Emergency (ER) | payer MEDICAID ==
[~2020-02-20] VITALS: Ht 165.1 cm; Wt 70.0 kg
[2020-02-20 18:22] VITALS: BP 146/95
== END 2020-02-20 18:51 | disposition home or self-care (01) ==
LOC: ER 18:15
DX: Z76.5 Malingerer [conscious simulation] (principal); R51.9 Headache, unspecified; F41.9 Anxiety disorder, unspecified; F32.9 Major depressive disorder, single episode, unspecified; F20.9 Schizophrenia, unspecified; F12.90 Cannabis use, unspecified, uncomplicated; F15.90 Other stimulant use, unspecified, uncomplicated; Z60.2 Problems related to living alone; Z59.0 Homelessness; Z56.0 Unemployment, unspecified
CPT/HCPCS: 99281

== ENCOUNTER 2020-04-15 01:28 | Emergency (ER) | payer MEDICAID ==
[~2020-04-15] VITALS: Ht 172.7 cm; Wt 61.4 kg
[2020-04-15] MEDS ORDERED: OLANZapine 5mg rapidly disint. tablet PO ONE (03:05)
[2020-04-15] MEDS ORDERED: quetiapine 100mg tablet PO ONE (03:45)
[2020-04-15 03:50] LABS: BASOPHILS # (AUTO) 0.1 X10'3 (0-0.2); EOSINOPHILS # (AUTO) 0.3 X10'3 (0-0.9)
[2020-04-15] MEDS ORDERED: QUEtiapine 25mg tablet PO ONE (03:50)
[2020-04-15 03:52] LABS: BASOPHILS % (AUTO) 0.9 % (0-1); EOSINOPHILS % (AUTO) 2.3 % (0-6); HEMATOCRIT 45.2 % (42.0-52.0); LYMPHOCYTES # (AUTO) 3.2 X10'3 (1.1-4.8); LYMPHOCYTES % (AUTO) 25.3 % (21-51); MEAN CORPUSCULAR HEMOGLOBIN 28.8 PG (27.0-31.0); MEAN CORPUSCULAR HGB CONC 33.2 g/dL (33.0-36.5); MEAN CORPUSCULAR VOLUME 86.8 FL (78-98); MEAN PLATELET VOLUME 10.6 FL (7.4-10.4); MONOCYTES % (AUTO) 8.2 % (2-12); NEUTROPHILS % (AUTO) 63.3 % (42-75); RED BLOOD COUNT 5.21 X10'6 (4.70-6.10); RED CELL DISTRIBUTION WIDTH 13.5 % (11.5-14.5); WHITE BLOOD COUNT 12.7 X10'3 (4.5-11.0)
[2020-04-15 03:59] LABS: CLARITY,URINE CLEAR (Clear); COLOR,URINE YELLOW (Yellow); GLUCOSE, URINE NEGATIVE (Neg); KETONES,URINE NEGATIVE (Neg); LEUKOCYTE ESTERASE ,URINE NEGATIVE (Neg); NITRITES, URINE NEGATIVE (Neg); OCCULT BLOOD,URINE TRACE-LYSED (Neg); PROTEIN,URINE NEGATIVE (Neg); URINE AMPHETAMINE SCREEN POSITIVE (Neg); URINE BARBITUATE SCREEN NEGATIVE (Neg); URINE BENZODIAZEPINES SCREEN NEGATIVE (Neg); URINE CANNABINOID SCREEN NEGATIVE (Neg); URINE COCAINE SCREEN NEGATIVE (Neg); URINE METHADONE SCREEN NEGATIVE (Neg); URINE OPIATE SCREEN NEGATIVE (Neg); URINE PHENCYCLIDINE SCREEN NEGATIVE (Neg); UROBILINOGEN,URINE 0.2 E.U/dL (0.2-1.0)
[2020-04-15 03:59] LABS: ALANINE AMINOTRANSFERASE 34 U/L (12-78); ALBUMIN 3.5 G/DL (3.4-5.0); ALBUMIN/GLOBULIN RATIO 0.9 (1.1-1.5); ALKALINE PHOSPHATASE 107 IU/L (46-116); ANION GAP 5 (8-16); ASPARTATE AMINO TRANSFERASE 28 U/L (10-37); BILIRUBIN,TOTAL 0.4 MG/DL (0.1-1.0); BLOOD UREA NITROGEN 13 MG/DL (7-18); BUN/CREATININE RATIO 15.3 (5.4-32.0); CALCIUM 8.7 MG/DL (8.5-10.1); CHLORIDE 106 MMOL/L (99-107); CREATININE 0.85 MG/DL (0.60-1.10); GLUCOSE 76 MG/DL (70-104); POTASSIUM 3.5 MMOL/L (3.5-5.1); SODIUM 143 MMOL/L (135-145); TOTAL PROTEIN 7.5 G/DL (6.4-8.2); eGFR > 90 ML/MIN
[2020-04-15 04:01] LABS: ETHANOL < 0.010 GM/DL (0.0-0.010)
[2020-04-15 04:01] LABS: UA COLLECTION TYPE CLN CATCH MIDSTREAM
[2020-04-15 04:06] LABS: BACTERIA,URINE NONE SEEN /HPF (Neg); MUCUS STRANDS NONE SEEN /LPF (Neg); RBC,URINE 0-2 /HPF (0-2); SQUAMOUS EPITHELIAL CELL,UR FEW /LPF (FEW); WBC,URINE NONE SEEN /HPF (0-4)
[2020-04-15] MEDS ORDERED: HYDR-3686 PO (04:12)
[2020-04-15 04:35] LABS: PLATELET COUNT 212 X10'3 (140-440)
--- NOTE | 2020-04-15 07:05 | NUR ---
Pt is resting quietly at this time.
[2020-04-15] MEDS ORDERED: QUEtiapine 25mg tablet PO SCH (08:00)
--- NOTE | 2020-04-15 08:59 | NUR ---
PACKET FAXED TO [facility]
--- NOTE | 2020-04-15 10:07 | NUR ---
PT AMBULATED WITH TECH TO OF ROOM 20 FROM ER 14. PT EATING BREAKFAST NO NEEDS AT THIS TIME
--- NOTE | 2020-04-15 11:21 | NUR ---
PT RESTING ON BACK RR EQUAL AND UNLABORED
--- NOTE | 2020-04-15 13:41 | NUR ---
PT RESTING EYES CLOSED. INFORMED PT LUNCH IS AT BS HE STATES HE WILL EAT IN A LITTLE WHILE
--- NOTE | 2020-04-15 15:36 | NUR ---
PT AWAKE AND EATING LUNCH
--- NOTE | 2020-04-15 18:52 | NUR ---
SCM at bedside to evaluate patient and asked patient to sit up and talk to him. Patient became extremely verbally aggressive stating he just wants to sleep and has been uncooperative with interview. Patient was instructed to cooperate with the evaluation but continues to refuse to answer any of the questions for MH.
--- NOTE | 2020-04-15 19:24 | NUR ---
Informed by [facility] that patient was not going to be placed on a hold. [facility] spoke with the MD and informed her of the interaction that took place and that patient was not going to be placed on a hold. MD refused to d/c patient at this time. CN advised.
--- NOTE | 2020-04-15 20:30 | NUR ---
Patient has been resting comfortably since earlier event. No apparent s/s of distress noted
--- NOTE | 2020-04-15 21:15 | NUR ---
Patient is still lying in his bed and appears to be resting comfortably, no s/s of distress noted.
--- NOTE | 2020-04-15 22:00 | NUR ---
Patient appears to still be resting comfortably. No apparent s/s of distress noted
--- NOTE | 2020-04-15 23:29 | NUR ---
Relieving primary RN, Flor, for break. Pt sleeping, just rolled over and now lying on his right sidewith blankets covering to his shoulders. RR 14 and unlabored. Sitter and RN within view of Pt AAT.
--- NOTE | 2020-04-16 00:02 | NUR ---
Patient appears to be resting comfortably. No apparent s/s of distress noted
--- NOTE | 2020-04-16 00:34 | NUR ---
Patient appears to be resting comfortably. No apparent s/s of distress noted
--- NOTE | 2020-04-16 01:47 | NUR ---
Patient appears to be resting comfortably. No apparent s/s of distress noted
--- NOTE | 2020-04-16 02:26 | NUR ---
Patient appears to be resting comfortably. No apparent s/s of distress noted
--- NOTE | 2020-04-16 03:18 | NUR ---
Patient is currently lying in bed and appears to be resting comfortably. Patient is not currently on a MH hold but supercharge repair supervisor states that Dr. Root wanted patient to stay through the night and have a new MH evaluation done in the AM.
[2020-04-16 05:16] VITALS: BP 123/85
--- NOTE | 2020-04-16 05:43 | NUR ---
Patient continues to appear to be resting comfortably. No apparent s/s of distress noted. Patient has had no outbursts toward anymore staff. No SI or HI verbalized during the remainder of the shift tonight. Pt was cooperative when VS were taken this AM.
== END 2020-04-16 09:08 | disposition home or self-care (01) ==
LOC: ER 01:29
DX: F15.10 Other stimulant abuse, uncomplicated (principal); F29 Unspecified psychosis not due to a substance or known physiological condition; F12.10 Cannabis abuse, uncomplicated; F41.9 Anxiety disorder, unspecified; F32.9 Major depressive disorder, single episode, unspecified; Z59.0 Homelessness; Z56.0 Unemployment, unspecified; Z79.899 Other long term (current) drug therapy
CPT/HCPCS: 80053; 80305; 80320; 81001; 85025; 99284; 99285

== ENCOUNTER 2020-11-20 03:17 | Emergency (ER) | payer MEDICAID ==
[~2020-11-20] VITALS: Ht 167.6 cm; Wt 80.0 kg
[~2020-11-20 03:17] MED LIST changes: +HYDR-3686 PO; -NO HOME MEDS
[2020-11-20 03:24] VITALS: BP 151/101
[2020-11-20] MEDS ORDERED: CEPH-585 PO (05:49)
[2020-11-20] MEDS ORDERED: SULF1TAB45 PO (05:49)
[2020-11-20] MEDS ORDERED: HYDROcodone/acetaminophen 5mg/325mg tablet PO ONE (06:15)
== END 2020-11-20 06:55 | disposition home or self-care (01) ==
LOC: ER 03:19
DX: S92.424A Nondisplaced fracture of distal phalanx of right great toe, initial encounter for closed fracture (principal); L03.031 Cellulitis of right toe; M79.674 Pain in right toe(s); F41.9 Anxiety disorder, unspecified; F20.9 Schizophrenia, unspecified; F32.9 Major depressive disorder, single episode, unspecified; F12.90 Cannabis use, unspecified, uncomplicated; F15.90 Other stimulant use, unspecified, uncomplicated; Z60.2 Problems related to living alone; Z56.0 Unemployment, unspecified; Z59.0 Homelessness; Z79.2 Long term (current) use of antibiotics; X58.XXXA Exposure to other specified factors, initial encounter; Y93.01 Activity, walking, marching and hiking; Y92.89 Other specified places as the place of occurrence of the external cause; Y99.8 Other external cause status
CPT/HCPCS: 73660; 99283

== ENCOUNTER 2021-01-10 16:00 | Emergency (ER) | payer MEDICAID ==
[~2021-01-10] VITALS: Ht 170.2 cm; Wt 76.5 kg
[~2021-01-10 16:00] MED LIST changes: +CEPH-585 PO
[2021-01-10 17:26] VITALS: BP 130/99
[2021-01-10] MEDS ORDERED: LIDOcaine 1% W/epiNEPHrine 1:200,000 10ml vial IJ ONE (20:20)
[2021-01-10] MEDS ORDERED: ibuprofen 200mg tablet PO ONE (20:45)
== END 2021-01-10 20:44 | disposition home or self-care (01) ==
LOC: ER 16:02
DX: L05.01 Pilonidal cyst with abscess (principal); F41.9 Anxiety disorder, unspecified; F20.9 Schizophrenia, unspecified; F32.9 Major depressive disorder, single episode, unspecified; F12.90 Cannabis use, unspecified, uncomplicated; F15.90 Other stimulant use, unspecified, uncomplicated; Z60.2 Problems related to living alone; Z56.0 Unemployment, unspecified; Z59.0 Homelessness; Z79.2 Long term (current) use of antibiotics
CPT/HCPCS: 10080; 99282

== ENCOUNTER 2021-03-24 06:44 | Emergency (ER) | payer MEDICAID ==
--- NOTE | 2021-03-24 06:57 | NUR ---
pt was in the bathroom for the last 15 min, once he came out he stated he did not want to be seen. educated about importance of being seen. pt refused and left out of ed with steady gait, no distress noted.
== END 2021-03-24 06:59 | disposition left against medical advice (07) ==
LOC: ER 06:44
DX: R51.9 Headache, unspecified (principal); Z53.21 Procedure and treatment not carried out due to patient leaving prior to being seen by health care provider

== ENCOUNTER 2021-09-03 02:11 | Emergency (ER) | payer MEDICAID ==
[~2021-09-03] VITALS: Ht 167.6 cm; Wt 68.2 kg
[2021-09-03 02:23] VITALS: BP 145/99
== END 2021-09-03 04:34 | disposition left against medical advice (07) ==
LOC: ER 02:12
DX: M25.521 Pain in right elbow (principal); Z53.21 Procedure and treatment not carried out due to patient leaving prior to being seen by health care provider